=== PATIENT | female | born 1940 | race African-American/Black ===

== ENCOUNTER 2016-09-14 20:07 | Inpatient (IN) ==
[2016-09-14] MEDS ORDERED: MORPHINE IV ONE (21:56)
[2016-09-14] MEDS ORDERED: ZOFRAN IV ONE (21:57)
[2016-09-14] MEDS ORDERED: DUONEB (A & A) INH ONE (22:13)
[2016-09-14 22:15] LABS: ALBUMIN 3.5 g/dL (3.5-5.0); CALCIUM 8.2 mg/dL (8.8-10.2); POTASSIUM 3.8 mmol/L (3.5-5.1); TOTAL BILIRUBIN 0.11 mg/dL (0.20-1.00); TOTAL PROTEIN 5.8 g/dL (6.3-8.3)
[2016-09-14 22:21] LABS: URINE CULTURE NEEDED? NO; URINE MICRO REVIEW NEEDED? NO; URINE SOURCE CLEAN CATCH
[2016-09-14 22:26] LABS: BILIRUBIN URINE NEGATIVE (NEGATIVE); BLOOD URINE NEGATIVE (NEGATIVE); COLOR YELLOW; GLUCOSE URINE NEGATIVE (NEGATIVE); LEUKOCYTES URINE NEGATIVE (NEGATIVE); NITRITE URINE NEGATIVE (NEGATIVE); PROTEIN URINE NEGATIVE (NEGATIVE); SP GRAVITY URINE 1.009; TURBIDITY URINE CLEAR (CLEAR); UR EPITHELIAL CELLS <10 /HPF (<10); URINE BACTERIA NEGATIVE /HPF; URINE RBC <10 /HPF (<10); URINE WBC <10 /HPF (<10); UROBILINOGEN URINE NORMAL (NORMAL)
--- NOTE | 2016-09-14 22:54 | PROVIDER DOCUMENTATION ---
HPI-General Adult - General Chief Complaint: Weakness Stated Complaint: "DIZZY, HARD TO BREATH, HEART POUNDING" Time Seen by Provider: 09/14/16 21:50 Source: patient, family Allergies/Adverse Reactions: Patient Allergies Allergy/AdvReac Type Severity Reaction Status Date / Time codeine [Codeine] Allergy Mild ITCHING Verified 04/12/16 23:45 Penicillins Allergy Mild ITCHING Verified 04/12/16 23:45 Home Medications: Home Medication List Medication Instructions Recorded Confirmed Last Taken Type Allopurinol [Zyloprim] 200 mg PO DAILY 03/20/12 09/14/16 09/14/16 10:00 History Celecoxib [Celebrex] 200 mg PO DAILY 03/20/12 09/14/16 09/14/16 10:00 History Fluticasone/Salmet 250/50 INH 2 puff INH RTBID 03/20/12 09/14/16 09/14/16 10:00 History [Advair 250/50 Diskus] Potassium Chloride 20 meq PO BID 03/20/12 09/14/16 09/14/16 10:00 History Prednisone 5 mg PO DAILY #30 04/22/12 09/14/16 09/14/16 10:00 Rx Albuterol Sulfate Inhaler 2 puff INH Q6H PRN PRN 05/27/12 09/14/16 09/14/16 12: 00 History [Ventolin Hfa] Albuterol [Albuterol Neb] 2.5 mg INH Q4H PRN PRN 05/27/12 09/14/16 09/14/16 09: 30 History Furosemide 80 mg PO BID 02/02/14 09/14/16 09/14/16 10:00 History Warfarin [Coumadin] 3 mg PO QHS 02/02/14 09/14/16 09/13/16 20:00 History Bumetanide [Bumex] 1 mg PO DAILY 04/12/16 09/14/16 09/14/16 10:00 History Hydralazine [Apresoline] 100 mg PO BID 09/14/16 09/14/16 09/14/16 10:00 History Metoprolol Succinate E.r. [Toprol 25 mg PO DAILY 09/14/16 09/14/16 09/14/16 10: 00 History Xl] - History of Present Illness -Gen Adult Nature of Presenting Problems: 76 yof with c/o generalized weakness and some mild SOB. The symptoms has continued to get worse that past few days. Some mild edema to BLE. Pt also c/o left chest pain under her breast. Location of Pain/Injury: reports: none Pain Radiation: reports: no radiation Quality of Pain: reports: dull Severity: reports: mild Onset/Duration: reports: abrupt Timing: reports: still present, getting worse Context/Activities at Onset: reports: rest Modifying Factors: improves with: nothing Associated Symptoms: reports: dizziness, weakness Similar Symptoms Previously?: No Recently seen or treated by another doctor?: No Review of Systems - Adult - REVIEW OF SYSTEMS - ADULT Constitutional: reports: see HPI Eyes: reports: no symptoms reported Ears, Nose, Mouth & Throat: reports: no symptoms reported Cardiovascular: reports: see HPI, chest pain Respiratory: reports: see HPI, shortness of breath Gastrointestinal: reports: no symptoms reported Genitourinary: reports: no symptoms reported Musculoskeletal: reports: no symptoms reported Integumentary: reports: no symptoms reported Neurological: reports: see HPI, dizziness/vertigo All Other Systems: Reviewed and Negative Past History - Adult - PAST MEDICAL HISTORY-ADULT Review of Records: reports: Old Records Reviewed, Nursing Assessment Review, Medications Reviewed, Social history reviewed & non-contributory. Major Childhood Illnesses: reports: denies history Cardiovascular: reports: CHF, HTN, hyperlipidemia Respiratory: reports: asthma, other (PE) Gastrointestinal: reports: GERD Obstetrical/Gynecological: reports: denies history Genitourinary: reports: kidney stones, other (chronic renal failure) Musculoskeletal: reports: denies history Neurological: reports: denies history Endocrine/Immune: reports: anemia Other Conditions: reports: MRSA - PRIOR SURGERIES/PROCEDURES Surgical/Procedure History: reports: appendectomy - IMMUNIZATION STATUS Childhood Immunizations: See Nurse Assessment Flu Vaccine: See Nurse Assessment Physical Exam-General - PHYSICAL EXAM-ADULT Initial Vital Signs Reviewed: Yes - CONSTITUTIONAL General Appearance: appears well, alert, no apparent distress - EYES Eyes: PERRL/EOMI, pink conjunctivae - HEAD, EARS, NOSE, MOUTH & THROAT HENMT: normocephalic/atraumatic, moist mucous membranes, normal ENT inspection, TMs normal, pharynx normal - NECK Neck: non-tender, full range of motion, supple, normal inspection - RESPIRATORY Respiratory: chest non-tender, lungs clear, normal breath sounds, no pleuratic chest pain, no respiratory distress, no accessory muscle use - CARDIOVASCULAR Cardiovascular: normal peripheral pulses, regular rate, rhythm - GASTROINTESTINAL (ABDOMEN) Abdominal Exam: normal bowel sounds, non tender, soft, no organomegaly, no pulsatile mass - LYMPHATIC Lymphatic: no adenopathy - MUSCULOSKELETAL Back Exam: normal inspection, no CVA tenderness, no vertebral tenderness Extremity: normal range of motion, non-tender, normal gait, no pedal edema, no calf tenderness, normal capillary refill, pelvis stable, pedal edema - SKIN Integumentary: normal color, normal turgor, warm/dry - NEUROLOGIC Neurologic: grossly normal - PSYCHIATRIC Psych/Mental Status: oriented x 3 Progress - PLAN OF CARE/RESULTS Progress/Plan/Lab Results: Vital Signs - 8 hr 09/14/16 20:09 09/14/16 20:50 09/14/16 20:52 Temperature 98.4 F Pulse Rate 91 H 83 81 Respiratory Rate 20 20 Blood Pressure 142/64 147/81 144/82 O2 Sat by Pulse Oximetry 100 100 100 09/14/16 22:17 09/14/16 22:22 Temperature Pulse Rate 91 H 80 Respiratory Rate 31 H 16 Blood Pressure 147/68 O2 Sat by Pulse Oximetry 100 Laboratory Results - last 24 hr 09/14/16 09/14/16 09/14/16 21:33 21:33 21:33 Sodium 144 Potassium 3.8 Chloride 105 Carbon Dioxide 21 L Anion Gap 18 BUN 111 H Creatinine 3.6 H Estimated GFR/1.73 m2 15 BUN/Creatinine Ratio 31 Glucose 136 H Calculated Osmolality 324 Calcium 8.2 L Total Bilirubin 0.11 L AST 12 ALT 9 L Alkaline Phosphatase 41 Creatine Kinase 122 Troponin T 0.036 Cic-G-Cxasnuwtkwz Pept 9475 H Total Protein 5.8 L Albumin 3.5 Globulin 2.3 Albumin/Globulin Ratio 1.5 Urine Source Urine Color Urine Turbidity Urine pH Ur Specific [place] Urine Protein Ur Glucose (Stick) Ur Ketones (Stick) Urine Blood Urine Nitrite Urine Bilirubin Urobilinogen Dipstick Urine Leukocytes Urine WBC (Auto) Urine RBC (Auto) U Epithel Cells (Auto) Urine Bacteria (Auto) 09/14/16 22:12 Sodium Potassium Chloride Carbon Dioxide Anion Gap BUN Creatinine Estimated GFR/1.73 m2 BUN/Creatinine Ratio Glucose Calculated Osmolality Calcium Total Bilirubin AST ALT Alkaline Phosphatase Creatine Kinase Troponin T [id number] Pept Total Protein Albumin Globulin Albumin/Globulin Ratio Urine Source CLEAN CATCH Urine Color YELLOW Urine Turbidity CLEAR Urine pH 5.0 Ur Specific [place] 1.009 Urine Protein NEGATIVE Ur Glucose (Stick) NEGATIVE Ur Ketones (Stick) NEGATIVE Urine Blood NEGATIVE Urine Nitrite NEGATIVE Urine Bilirubin NEGATIVE Urobilinogen Dipstick NORMAL Urine Leukocytes NEGATIVE Urine WBC (Auto) <10 Urine RBC (Auto) <10 U Epithel Cells (Auto) <10 Urine Bacteria (Auto) NEGATIVE Orders Category Date Time Status CHEST-PORTABLE [RAD] Stat Exams 09/14/16 22:13 Taken CBC WITH ELECTRONIC DIFF [HEME] Stat Lab 09/14/16 21:33 Results CK PROFILE [SP CHEM] Stat Lab 09/14/16 21:33 Completed CMP [COMPREHENSIVE METABOLIC PANEL] [CHEM] Stat Lab 09/14/16 21:33 Completed PRO B-NATRIURETIC PEPTIDE Stat Lab 09/14/16 21:33 Completed TROPONIN T Stat Lab 09/14/16 21:33 Completed URINALYSIS W/POSS RFLX CULT [URINALYSIS] Stat Lab 09/14/16 22:12 Completed Albuterol 2.5MG/Ipratrop 0.5MG [Duoneb (A & A)] Med 09/14/16 22:13 Discontinued 3 ml INH NOW ONE Morphine Med 09/14/16 21:56 Discontinued 4 mg IV NOW ONE Ondansetron [Zofran] Med 09/14/16 21:57 Discontinued 4 mg IV NOW ONE Aerosol Treatments Routine Oth 09/14/16 22:13 Completed Aerosol Treatments Stat Oth 09/14/16 22:13 Completed EKG [EKG] Stat Ther 09/14/16 20:18 Ordered Result Diagrams: 09/14/16 21:33 09/14/16 21:33 - XRAY 1 XRAY Study: Chest Impression: See EMR Report (Very mild pulmonary congestion per Dr. Bowling.) - CONSULTS/PCP/HOSPITALIST Notification #1 *Consult/PCP/Hospitalist*: Lane Consult Disposition: Admit Departure - Departure Time of Disposition Decision: 23:13 DIAGNOSIS: Anemia Qualifiers: Anemia type: unspecified type Qualified Code(s): D64.9 - Anemia, unspecified CHF (congestive heart failure) Qualifiers: Congestive heart failure type: unspecified congestive heart failure type Congestive heart failure chronicity: chronic Qualified Code(s): I50.9 - Heart failure, unspecified Disposition: ADMITTED INPATIENT 09 Certified Medical Emergency: Emergent Condition: Stable Referrals and Follow-Ups: Liliana Munoz MD [Primary Care Provider] - - Critical Care Note This patient required my direct & personal management of CC.: No Attestation - Physician/ HAKAN Attestation Patient care was provided by Advanced Practice Provider:: Yes Advanced Practice Provider:: Ac Friedman Advanced Practice Provider documentation review:: The Mid-level provider documentation, treatment plan and medical decision making was reviewed by the physician who agrees with all treatment and medical decision making by the MLP.
[2016-09-14 23:01] LABS: BASO% 0.3 % (0.0-0.8); EOS# 0.07 X1000 (0.0-0.7); EOS% 0.6 % (0.0-10.0); HEMATOCRIT 18.9 % (37.0-47.0); HEMOGLOBIN 5.7 g/dL (12.0-16.0); IMM GRAN# 0.08 X1000 (0.0-0.04); IMM GRAN% 0.7 % (0.0-0.5); LYMPH# 0.86 X1000 (1.2-3.4); LYMPH% 7.4 % (20.5-51.1); MANUAL DIFF NEEDED? NO; MCH 31.3 PG (27-31); MCHC 30.2 g/dL (33-37); MCV 103.8 FL (81-99); MONO# 0.83 X1000 (0.11-0.59); MONO% 7.1 % (1.7-9.3); MPV 10.2 FL (7.4-10.4); NEUT% 83.9 % (42.2-75.2); PLT 271 X1000 (130-400); RBC 1.82 XMIL (4.2-5.4)
[2016-09-15 00:58] LABS: IRON SATURATION 7 %; TIBC 279 ug/dL; TOTAL IRON 20 ug/dL (49-151); UNBOUND IRON 259 ug/dL (112-346)
[2016-09-15] MEDS ORDERED: ZOFRAN IV PRN (00:59)
[2016-09-15] MEDS ORDERED: TYLENOL PO PRN (00:59)
[2016-09-15 01:17] LABS: FERRITIN 27 ng/mL (13-150)
[2016-09-15 02:15] LABS: HEMOGLOBIN A1C 5.1 % (4.8-6.0)
[2016-09-15] MEDS ORDERED: NS 250 ML IV SCH (02:25)
[2016-09-15] MEDS ORDERED: NS 500 ML ONE (02:39)
[2016-09-15] MEDS ORDERED: NS 500 ML IV SCH (03:02)
[2016-09-15] MEDS: NS 500 ML IV SCH ×2 (03:14→06:20)
[2016-09-15] MEDS: ALBUTEROL NEB INH PRN ×5 (03:25→23:30)
[2016-09-15] MEDS: PROTONIX IV SCH ×2 (03:27→12:48)
--- NOTE | 2016-09-15 05:59 | HISTORY AND PHYSICAL ---
PRIMARY CARE PHYSICIAN: Dr. Munoz. CHIEF COMPLAINT: Shortness of breath on exertion. HISTORY OF PRESENT ILLNESS: This is a 76-year-old female with past medical history of diabetes, hypertension, who was brought to the emergency department because she was feeling weak and tired. She reports that she had this sensation for the last week and she went to see her primary care doctor and that was 3 days ago. Apparently, she was also complaining of shortness of breath. She had a pulmonary embolism with DVT status post inferior vena cava filter. She was started on Coumadin and she reported that she was on Coumadin and she got GI bleeding but the medication was restarted later on. Workup in the ER showed very low hemoglobin of 5.7 so patient is going to be admitted for further evaluation and treatment. She denies any vomiting blood or blood in the urine or black stools. PAST MEDICAL HISTORY: 1. Hypertension. 2. Diabetes type 2. 3. Carcinoid syndrome. Dr. Lozoya is following this patient. 4. Gout. 5. Metabolic syndrome. 6. Pickwickian syndrome. 7. Peptic ulcer disease. 8. Chronic kidney disease. PAST SURGICAL HISTORY: 1. Appendectomy. 2. Colonoscopy. 3. Ventral hernia repair. 4. Hysterectomy. 5. Left knee arthroscopy. 6. Left sigmoid colectomy. 7. Port-A-Cath placed in the right side status post IVC filter. ALLERGIES: Penicillin and codeine. SOCIAL HISTORY: Patient lives with daughter. No alcohol, cigarette or drugs reported. REVIEW OF SYSTEMS: Eleven systems were reviewed and all symptoms are related to H P. PHYSICAL EXAMINATION: VITALS: Temperature 98.4 degrees, heart rate 85, respiratory 22, blood pressure 161/76, O2 saturation 100% on room air. GENERAL: This is a 76-year-old female lying in bed in no acute distress. HEENT: Normocephalic, atraumatic. Anicteric sclerae and pale conjunctivae. Mucous membranes moist. NECK: Supple. No JVD noted. No carotid bruits. No lymphadenopathy. No thyromegaly. CARDIOVASCULAR: S1, S2 heard. No murmurs, gallops, or rubs. Regular rate and rhythm. RESPIRATORY: Clear bilaterally to auscultation. No work of breathing. No wheezing. ABDOMEN: Soft, nontender to palpation. Bowel sounds present. No organomegaly. EXTREMITIES: Mild edema 3+ in both lower extremities. Peripheral pulses present in both legs. NEUROLOGICAL: Patient alert and oriented x3. Able to move 4 extremities. Cranial nerves 2 through 12 grossly normal. LABORATORY DATA: Hemoglobin 5.7, hematocrit 18.9, platelets 271,000 with a creatinine 3.6, BUN 111. ASSESSMENT AND PLAN: 1. Severe anemia. 2. Hypertension. 3. Diabetes mellitus. 4. Congestive heart failure. 5. Chronic kidney disease 6. History of carcinoid Patient is admitted to the hospital because of the severe anemia. We are going to order anemia profile but definitely this patient will need 2 units of blood. We are going to check CBC tomorrow. Also, because of suspicion for GI bleeding we are going to consult GI and also we ordered a CT of the abdomen and pelvis without contrast because of renal dysfunction. For chronic kidney disease we are going to continue with the same management with IV fluids and we will consider consult Dr. Elliott while this patient is here in the hospital. We will consult Dr. Lozoya for continuity of care regarding carcinoid and anemia. For hypertension, we will continue with home medications. For diabetes, we are going to check hemoglobin A1c and check Accu-Cheks q.6 hours. Tomorrow, Dr. Nik Munoz's group will take over this patient. cc: William Oliveira MD [facility]
--- NOTE | 2016-09-15 07:14 | EKG Report ---
Test Performed on : 09/14/2016 9:17:27 PM Test Reason : WEAKNESS Blood Pressure : / mmHG Vent. Rate : 093 BPM Atrial Rate : 093 BPM P-R Int : 232 ms QRS Dur : 162 ms QT Int : 412 ms P-R-T Axes : 066 -59 014 degrees QTc Int : 512 ms Sinus rhythm. with 1st degree AV block. with occasional and consecutive premature ventricular comple xes. Left axis deviation Right bundle branch block Septal infarct (cited on or before 14-SEP-2016) Abnormal ECG When compared with ECG of 14-SEP-2016 21:14, (Unconfirmed) premature ventricular complexes. are now present Questionable change in initial forces of Septal leads Unconfirmed Result
[2016-09-15] MEDS: APRESOLINE PO SCH ×2 (08:15→21:24)
[2016-09-15] MEDS: PREDNISONE PO SCH (08:15)
[2016-09-15] MEDS: KLOR-CON PO SCH ×2 (08:15→21:25)
[2016-09-15] MEDS ORDERED: TOPROL XL PO SCH (09:00)
[2016-09-15] MEDS ORDERED: ZYLOPRIM PO SCH (09:00)
[2016-09-15] MEDS ORDERED: BUMEX PO SCH (09:00)
[2016-09-15] MEDS ORDERED: LASIX PO SCH (09:00)
[2016-09-15] MEDS: ADVAIR 250/50 DISKUS INH SCH ×2 (09:10→19:02)
[2016-09-15] MEDS ORDERED: VENTOLIN HFA INH PRN (11:44)
[2016-09-15 11:57] LABS: BASO% 0.2 % (0.0-0.8); EOS% 0.8 % (0.0-10.0); HEMATOCRIT 26.2 % (37.0-47.0); HEMOGLOBIN 8.4 g/dL (12.0-16.0); IMM GRAN# 0.05 X1000 (0.0-0.04); IMM GRAN% 0.4 % (0.0-0.5); LYMPH# 0.53 X1000 (1.2-3.4); LYMPH% 4.3 % (20.5-51.1); MANUAL DIFF NEEDED? YES; MCH 30.9 PG (27-31); MCHC 32.1 g/dL (33-37); MCV 96.3 FL (81-99); MONO# 0.63 X1000 (0.11-0.59); MONO% 5.1 % (1.7-9.3); NEUT% 89.2 % (42.2-75.2); PLT 246 X1000 (130-400); RBC 2.72 XMIL (4.2-5.4)
--- NOTE | 2016-09-15 11:59 | Diag Imaging Result Document ---
PROCEDURE NAME: ABDOMEN/PELVIS W/O CONTRAST - 09/15/2016 CT ABDOMEN AND PELVIS WITHOUT CONTRAST: COMPARISON: 10/27/2013. FINDINGS: There is a 1.1 cm noncalcified nodule at the left lung base that is stable. Given this long-term stability, this very likely represents a noncalcified granuloma based on [employer] Criteria. There is subsegmental atelectasis and/or scarring at the lung bases. There is cardiomegaly. The gallbladder is distended. There is no pericholecystic inflammatory change appreciated. There are a couple of small cyst density foci involving both kidneys. They are somewhat larger than the previous study. No renal stones are appreciated. There is no hydronephrosis. There has been interval placement of an infrarenal IVC filter. The struts of both filter extend beyond the wall of the IVC. There is extensive diverticulosis coli, but there is no evidence of diverticulitis. There are a couple of supraumbilical ventral wall hernias that can also be seen on the previous study. One contains only fat. The other contains a loop of small bowel. This was also seen on the previous study. There is no evidence of bowel strangulation. The bowel is not distended. There has been a previous hysterectomy. There is a metallic staple line associated with the distal colon. The remainder of the solid viscera of the abdomen and pelvis and the remainder of the GI tract is essentially unremarkable. No focal inflammatory changes, free abdominal gas, or free fluid is appreciated. IMPRESSION: 1. Interval placement of IVC filter as described with struts that extend beyond the IVC wall. 2. A couple of supraumbilical ventral wall hernias with one containing a loop of small bowel. However, there is no evidence of obstruction. 3. Other incidental/nonacute findings detailed above but no definite acute pathology.
--- NOTE | 2016-09-15 12:01 | Diag Imaging Result Document ---
PROCEDURE NAME: CHEST-PORTABLE - 09/14/2016 SINGLE FRONTAL RADIOGRAPH OF THE CHEST: COMPARISON: 04/13/2016. FINDINGS: Right chest port is in stable position. The lungs appear to be grossly clear. There is mild opacification at the left lung base but this appears to be due to overlying soft tissue attenuation. Cardiac silhouette is prominent but stable. Central vasculature is unremarkable. IMPRESSION: Somewhat prominent heart that is stable. No definite acute pathology.
--- NOTE | 2016-09-15 12:35 | PROGRESS NOTE ---
DATE: 09/15/2016 76-year-old, patient admitted with shortness of breath, decreased exercise tolerance. The patient was getting tired very easily. Came to the emergency room. Found to be severely anemic. The patient was admitted for further care. Admission history and physical noted. The patient does have a very complex medical history. The patient is under care of Hematology oncologist for her carcinoid. The patient had history of pulmonary embolism with DVT. Patient had inferior vena cava filter. Patient had problem with GI bleed on Coumadin which was stopped and restarted as per HPI. The patient denied any fresh bleeding per rectum. The patient complaining of muscle cramp in the legs. At times, nausea, vague pain in the left upper quadrant. No typical chest pain. She did have dyspnea on exertion. No runny nose, stuffy nose. No heat or cold intolerance. The rest from the admission history and physical. PAST MEDICAL HISTORY: Longstanding hypertension, diabetes, carcinoid syndrome, gout, Pickwickian syndrome, peptic ulcer disease and chronic kidney disease. PHYSICAL EXAMINATION: General: Elderly patient in no acute distress. Vital Signs: Noted. Blood pressure 162/69, pulse 85, respirations 20, temperature 98.1 degrees. Skin: No rash or petechiae. HEENT: Head atraumatic, normocephalic. [place] conjunctivae. [place] sclerae. Extraocular muscle movement normal. Fundus cannot be penetrated. Good oral hygiene. Ears and nose benign. Neck: Supple. No JVD. Lungs: Bibasilar crepitations. Heart: S1 and S2 heard. Abdomen: Soft, globular. Bowel sounds present. Mild epigastric tenderness. No guarding or rigidity. Extremities: No cyanosis, clubbing. No acute DVT. TIMING MACHINE OPERATOR: Alert, awake. Able to move all 4 limbs. Crepitation both the knee joints. LAB DATA: On admission, hemoglobin 5.7, WBC count 11.67, hematocrit 18.9, platelet count 271,000. BUN 111, creatinine 3.6. The patient's ferritin was 27. Serum iron was 20, vitamin B 12, 847. Folate 19. TSH 0.62. Urinalysis results reviewed. Patient had CT scan of abdomen and pelvis done and chest x-ray. Those results are pending. CONSIDERATION: 1. Symptomatic anemia status post blood transfusion. 2. Acute kidney injury. 3. Diabetes mellitus. 4. Hypertension. 5. Gout. 6. Carcinoid. PLAN: We will continue gentle hydration. The patient had a GI and Hematology consult requested. We are going to monitor her hemoglobin and hematocrit. I am going to continue gentle hydration, close observation, pain management. Overall plan discussed with the patient and she is in agreement. cc: MD Frankie Luciano MD
[2016-09-15 12:41] LABS: CALCIUM 7.9 mg/dL (8.8-10.2); POTASSIUM 4.2 mmol/L (3.5-5.1)
[2016-09-15] MEDS: NS 1,000 ML IV SCH (12:48)
[2016-09-15] MEDS: DILAUDID IV PRN ×2 (12:48→21:37)
[2016-09-15] MEDS: SODIUM CHLORIDE 0.9% INJ SCH (12:48)
[2016-09-15] MEDS: CATAPRES-TTS-3 TD SCH (12:53)
[2016-09-15 12:58] LABS: BANDS 2 % (0-1); LYMPHS 4 % (21-51); MONO 6 % (1-9); NRBC 1 % (0-0)
--- NOTE | 2016-09-15 17:39 | CONSULTATION ---
DATE OF CONSULTATION: 09/15/2016 REASON FOR CONSULTATION: Chronic kidney disease. HISTORY OF PRESENT ILLNESS: Ms Bhatt is a 76-year-old black female with obesity, diabetes, hypertension. She has carcinoid syndrome and is followed by Dr. Lozoya. She also has obstructive sleep apnea and known chronic kidney disease. She came to the emergency room because she had progressive weakness over period of weeks. She had seen Dr. Munoz and Dr. Lozoya but her symptoms were progressive. Dr. Lozoya had ordered dose of Sandostatin but her hemoglobin was markedly low so she came to the emergency room for transfusion and admission to the hospital. In this context, her creatinine was elevated above her historical baseline. Specifically, her creatinine was 3.6 on presentation. Her last creatinine in this facility was 2.9 in April of this year. It has ranged between 2.4 and 2.9 over the last 2 years. She feels somewhat better having received a transfusion. She has received 2 units of packed red blood cells and continues to receive normal saline at 85 mL an hour. No chest pain, palpitation, nausea, vomiting, etc. PAST MEDICAL HISTORY: As above. She also has a history of DVT. HOME MEDICATIONS: Include Advair, Celebrex, allopurinol, potassium chloride, prednisone, albuterol, warfarin, furosemide, bumetanide, metoprolol, hydralazine, clonidine. ALLERGIES: Penicillin and codeine. SOCIAL HISTORY: She lives with her daughter. No alcohol or tobacco. FAMILY HISTORY: Otherwise noncontributory. REVIEW OF SYSTEMS: Otherwise noncontributory. PHYSICAL EXAMINATION: Vital Signs: Blood pressure 140/53, heart rate 95, respiration 18, afebrile. General: She is in no acute distress. Skin: Warm and dry. HEENT: Conjunctivae are pink. Pupils are equal. Oropharynx is moist. Dentition normal. Neck: Supple. Trachea is midline. Neck veins are not distended. Heart: Regular without gallops or murmurs. Lungs: Have equal breath sounds. No crackles or wheezes. Abdomen: Soft and obese and nontender. Bowel sounds are present. No organomegaly. Extremities: Have no edema, clubbing, or cyanosis. Neurologic Exam: Grossly nonfocal. LABORATORY DATA: Sodium 144, potassium 4.2, chloride 108, bicarbonate 20, BUN 107, creatinine 3.6, hemoglobin 8.4. IMPRESSION: Chronic kidney disease. She had renal imaging with CT of the abdomen this morning with no acute findings related to her kidneys. Her creatinine is above baseline but only modestly. This may be related to her profound anemia and may improve over the next several days. I have reviewed her medications and no changes are required. She will continue her IV fluids as ordered. Electrolytes and acid-base are in target. cc: MD Frankie Zepeda MD
[2016-09-15 19:12] LABS: INR 2.98; PROTIME 33.6 Seconds (9.2-11.7)
[2016-09-15] MEDS: TOPROL XL PO SCH (21:24)
[2016-09-15] MEDS: CARAFATE LIQUID PO SCH (21:24)
[2016-09-16] MEDS: NS 1,000 ML IV SCH ×2 (01:02→13:47)
[2016-09-16] MEDS: CARAFATE LIQUID PO SCH ×4 (01:03→20:22)
[2016-09-16] MEDS: PROTONIX IV SCH ×2 (02:59→13:47)
[2016-09-16 05:24] LABS: MANUAL DIFF NEEDED? NO
[2016-09-16] MEDS ORDERED: DULCOLAX PR ONE (05:50)
[2016-09-16 05:55] LABS: ALBUMIN 3.1 g/dL (3.5-5.0); CALCIUM 7.6 mg/dL (8.8-10.2); TOTAL BILIRUBIN 0.17 mg/dL (0.20-1.00)
[2016-09-16 06:02] LABS: INR 3.06; PROTIME 34.5 Seconds (9.2-11.7)
[2016-09-16 06:03] LABS: BASO% 0.2 % (0.0-0.8); EOS# 0.16 X1000 (0.0-0.7); EOS% 1.4 % (0.0-10.0); HEMATOCRIT 24.2 % (37.0-47.0); HEMOGLOBIN 7.6 g/dL (12.0-16.0); IMM GRAN# 0.04 X1000 (0.0-0.04); IMM GRAN% 0.4 % (0.0-0.5); LYMPH# 0.72 X1000 (1.2-3.4); LYMPH% 6.5 % (20.5-51.1); MCH 30.3 PG (27-31); MCHC 31.4 g/dL (33-37); MCV 96.4 FL (81-99); MONO# 0.99 X1000 (0.11-0.59); MONO% 8.9 % (1.7-9.3); MPV 9.9 FL (7.4-10.4); NEUT% 82.6 % (42.2-75.2); PLT 243 X1000 (130-400); RBC 2.51 XMIL (4.2-5.4)
[2016-09-16] MEDS ORDERED: LASIX IV ONE (06:25)
--- NOTE | 2016-09-16 06:50 | PROGRESS NOTE ---
DATE: 09/16/2016 SUBJECTIVE: Ms. Bhatt is doing fair. The patient had vague left upper quadrant and chest pain. Complaining of leg cramps. No typical chest pain. No high-grade fever or chills. Denied any nausea or vomiting. Overall, patient is feeling better. She does get short of breath with exertion. Patient admitted with symptomatic anemia. OBJECTIVE: Vital Signs: Noted. Neck: Supple. No JVD. Lungs: Bibasilar crepitations. Heart: S1 and S2 heard. Extremities: No cyanosis, clubbing. No acute DVT. TOY CONSULTANT: Alert, awake. Able to move all 4 limbs. CONSIDERATION: 1. Symptomatic anemia, status post blood transfusion. Posttransfusion hemoglobin 7.6. No apparent external bleeding. The patient's PT/INR 3.06. Her anticoagulation is on hold. Green Lumber Grader following patient with us. 2. Her other problems include acute on chronic kidney disease. The patient was on very high dose of diuretics. 3. Carcinoid, being followed up by passenger barge master/oncologist. 4. History of deep venous thrombosis and pulmonary embolism. Her prothrombin time is still high. No apparent external bleeding. 5. Hypertension. 6. History of gout. Considering her renal function, I decreased her allopurinol. PLAN: Plan is to continue current treatment. I am going to give her small dose of Lasix today. Handmade Tile Artist, manager dish, and passenger barge master following patient with us. I am going to recheck blood work this afternoon. Continue rest of the treatment and close observation. cc: MD Frankie Luciano MD
[2016-09-16] MEDS: PREDNISONE PO SCH (08:11)
[2016-09-16] MEDS: APRESOLINE PO SCH ×2 (08:11→20:23)
[2016-09-16] MEDS: ZYLOPRIM PO SCH (08:11)
[2016-09-16] MEDS: KLOR-CON PO SCH ×2 (08:12→20:23)
[2016-09-16 09:10] LABS: CK INDEX 2.3 (0.0-2.5); CK-MB 4.41 ng/mL (0.0-5.0)
[2016-09-16] MEDS: ADVAIR 250/50 DISKUS INH SCH ×2 (09:25→19:03)
[2016-09-16] MEDS: ALBUTEROL NEB INH PRN ×2 (09:25→19:03)
[2016-09-16 11:51] LABS: RETIC% 7.19 % (0.8-2.1); RETIC-HE 26.2 PG (28.2-36.6)
--- NOTE | 2016-09-16 12:33 | CONSULTATION ---
DATE OF CONSULTATION: 09/16/2016 REASON FOR CONSULTATION: Cardiology was consulted for a 25 beat run of broad complex tachycardia and subsequently another episode of 31 beat run of broad complex tachycardia. Patient was asymptomatic from a cardiac standpoint. The patient is admitted with severe anemia, having undergone blood transfusion. HISTORY OF PRESENT ILLNESS: This is a 76-year-old Afro-[place] lady with a past medical history of hypertension and diabetes, came to the emergency room, was feeling weak. She had gone to see a primary care physician about 3 days back. She is on Coumadin for pulmonary embolism, DVT, and IVC filter placement in the past. From a cardiac standpoint, no known cardiac history. She has been diagnosed to have carcinoid syndrome. Underwent surgery and chemotherapy in 2003. Subsequently she has been stable from that account and followed by Dr. Lozoya. From a cardiac standpoint, has not had any syncope or chest discomfort. She denies having any nausea or vomiting. Has not noticed any black stools or blood in her stools. However, some greenish dark stools she had noted a couple of days back. There are no palpitations. REVIEW OF SYSTEM: A 14-point review of systems was done. GI System: As above. Central nervous system: No focal weakness to suggest a CVA or TIA. Genitourinary: There is no dysuria or hematuria. Respiratory System: There is no history of cough, expectoration, hemoptysis. There is no history of fevers or chills. PAST MEDICAL HISTORY: 1. Hypertension. 2. Diabetes. 3. Carcinoid syndrome status post surgery and chemotherapy. No history of cardiac involvement per patient. 4. Gout. 5. Metabolic syndrome. 6. Gastroesophageal reflux, peptic ulcer disease. 7. Chronic renal insufficiency. PAST SURGICAL HISTORY: 1. Left sigmoid colectomy. 2. Left knee arthroscopy. 3. Hysterectomy. 4. Ventral hernia surgery. 5. Colonoscopy. 6. Appendectomy. ALLERGIES: Patient is allergic to penicillin and codeine. SOCIAL HISTORY: Does not smoke. Does not drink. PHYSICAL EXAMINATION: Vital signs: Blood pressure was 160/70 when she came in. Cardiovascular System: Normal jugular venous pressure. There is no thyromegaly. There is no carotid bruit. First and second heart sounds were heard. There was no S3 gallop. Respiratory System: Clear on bilateral auscultation. There were no crepitations or wheezing. Abdomen: Soft, nontender. There was no guarding or rigidity. Bowel sounds were heard. Extremities: Examination of the extremities reveal pedal edema bilaterally, mild. Central nervous system: Alert and oriented. Moving all 4 extremities. HEENT: Atraumatic, normocephalic. LABORATORY EXAMINATION: Revealed WBC 11.67, hemoglobin 5.7, hematocrit 18.9, platelet count of 271,000. After transfusion 11.16, hemoglobin 7.6, hematocrit 42.2, platelet count of 243,000. Chemistry: Sodium 144, potassium 4.0, magnesium 2.0, BUN 96, creatinine 3.4. Troponin 0.041. CK-MB 4.41 negative. Chest x-ray was unremarkable. HOME MEDICATIONS: Included celecoxib 200 mg p.o. daily, allopurinol 200, potassium supplements 20, prednisone 10, nebulizers, Coumadin 4 mg, Lasix 80 mg p.o. b.i.d., Bumex 1 mg p.o. daily, metoprolol 25, hydralazine 50 mg p.o. t.i.d., clonidine patch. ASSESSMENT AND PLAN: 1. Ms. Chayo Bhatt is a 76-year-old Afro-[place] lady with history of carcinoid in the past status post surgery and chemotherapy, hypertension, diabetes, renal insufficiency, gastroesophageal reflux disease, on Coumadin therapy for pulmonary embolism in the past, is admitted with weakness and has severe anemia. Coumadin has been held status post blood transfusion. From a cardiac standpoint, we will get an echocardiogram to assess cardiac and valvular function. She has had broad complex tachycardia 31 beat and 25 beat without any symptoms. Cardiac enzymes negative. This could be multifactorial. She had significant electrolyte imbalance when she came in and nephrology is following as well. For the present we will follow hospital course. She is on metoprolol. I will recommend continuing her metoprolol. 2. Severe anemia. GI has been consulted. Upper GI endoscopy planned. Recommend proceeding with endoscopy. 3. Acute on chronic renal insufficiency. Nephrology on board. Thank you for the consult. We will follow hospital course. cc: MD Frankie Phoenix MD
--- NOTE | 2016-09-16 13:26 | CONSULTATION ---
DATE OF CONSULTATION: 09/15/2016 ATTENDING PHYSICIAN: Dr. Sherman. PRIMARY: Dr. Munoz. REASON FOR CONSULTATION: Severe anemia. HISTORY OF PRESENT ILLNESS: Ms. Bhatt a 76-year-old female who was admitted on 09/15/2016 with shortness of breath on exertion. She has prior history of PE, DVT status post IVC filter and on chronic Coumadin. She was noted to have a hemoglobin of 5.7. On admission she was given blood transfusion. 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 Lozoya. She gets once a month shot of long-acting somatostatin analog per Dr. Lozoya, her next appointment with Dr. Lozoya was coming Saturday. Patient denies any nausea, vomiting, vomiting blood or blood in the stools or black stools, blood in the urine and she had similar symptoms 3 years ago. At that time she had a EGD, colonoscopy done which showed evidence of gastritis and colon polyps and diverticulosis. PAST MEDICAL HISTORY: 1. Hypertension. 2. Type 2 diabetes. 3. Car[address]oid syndrome Dr. Lozoya getting somatostatin analog once a month. 4. Gout. 5. Metabolic syndrome. 6. Pickwickian syndrome. 7. Peptic ulcer disease. 8. Chronic kidney disease. PAST SURGICAL HISTORY: 1. 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 Colonoscopy. 3. EGD. 4. Ventral hernia repair. 5. Hysterectomy. 6. Two left knee arthroscopy. 7. Left sigmoid colectomy. 8. Port-A-Cath placement in the right status post IVC filter. ALLERGIES: Penicillin, codeine. SOCIAL HISTORY: She lives with her daughter, her daughter is present at bedside and very supportive. No history of smoking, alcohol, tobacco, illicit drugs. REVIEW OF SYSTEMS: Denies any current fevers, rigors or chills, chest pain, shortness of breath, dyspnea, denies any current nausea or vomiting, vomiting blood. Denies any history of coffee- grounds emesis. Denies any history of melena or blood in the stools. She does have history intermittent constipation. Her last bowel movement yesterday, she has not moved her bowels today. She has a history of arthritis, denies any neurological complaints. She complains of shortness of breath on exertion which was attributed to anemia is getting better, after transfusion . MEDICATIONS: In the hospital include IV fluids, normal saline, 20 mg of Tylenol , albuterol inhaler, allopurinol, clonidine, fluticasone/salmeterol, hydralazine, hydromorphone, Dilaudid, metoprolol, IV fluids, Zofran, Protonix IV b.i.d. and potassium chloride 20 mEq b.i.d., prednisone 5 mg daily, sucralfate 1 g 6 hours, albuterol/ipratropium inhalation once. She is currently on clear liquid diet. PHYSICAL EXAM: Vital signs: Temperature 97.3, pulse of 95, respiratory rate 18, blood pressure 140/50, saturating 100% on nasal cannula, body weight of 199 pounds 1 ounce, BMI 36. General: Is moderately built, nourished, mildly obese lying in bed in no acute distress. Daughter at bedside. HEENT: Pale conjunctivae. No icterus. Pupils equal, react to light. Neck: Was supple. Chest: decreased breath sounds at the bases Cardiac: Regular rhythm, no murmur. Abdomen: Obese, soft, nontender, nondistended. Bowel sounds and no guarding. No rebound. Extremities: No cyanosis, clubbing. Neuro: She is alert, awake and oriented x3. LABS: Hemoglobin and hematocrit is 8.4, 26.2, white count 12.3, platelet count of 246,000, MCV of 96.3, admission hemoglobin and hematocrit was 5.7, 18.9, PTT of 37.1. Sodium 142, potassium 4.2, chloride 129, BUN of 107, creatinine 3.6, glucose 133, calcium 7.9, iron level of 21, calcium is 8.2, percent saturation iron is 7%, TIBC 279, ferritin 27, total bilirubin is 0.11, AST 12, ALT 9, alkaline phosphatase is 41, total protein is 5, albumin of 3.5, B12 847, folate of 19, urinalysis is negative. CT scan done on 09/15/2016 showed interval placement IVC filter with struts that extends beyond IVC. #2. A couple of supraumbilical ventral wall hernias with 1 containing a loop of small bowel however there is no discharge. #3. 1 cm noncalcified nodule at the left lung base that is stable. 4. Subsegmental atelectasis or scarring in lung bases. 5. Cardiomegaly. 5. Gallbladder is distended, no pericholecystic inflammatory change noted. Small cysts noted in both kidneys, no hydronephrosis, extensive diverticulosis coli, no evidence of diverticulitis , couple of supraumbilical ventral hernia only 1 contains only fat, other 1 continuous loop of small bowel. No bowel strangulation. Previous hysterectomy, metallic staple line associated with the distal colon had a sigmoid colon resection history. No focal inflammatory change, free abdominal gas or free fluid noted. MEDICATIONS AT HOME: 1. Advair Diskus . 2. Celecoxib. 3. Allopurinol. 4. Potassium chloride. 5. Prednisone. 6. Ventolin HFA. 7. Warfarin. 8. Furosemide. 9. Hydralazine. 10. Clonidine. 11. Metoprolol. These are medicines from historic records, I do not have a list of medicines when she was admitted. IMPRESSION/PLAN: 1. Anemia with no evidence of any overt gastrointestinal bleeding. 2. Carcinoid syndrome, history appendiceal carcinoid which are ruptured and she is currently receiving somatostatin analog once a month per Dr. Lozoya, we will try to seek his help in order to evaluate for the extent of her carcinoid syndrome disease and if there is any kind of liver metastasis. 3. Diverticulosis of the colon. 4. Distended gallbladder was noted on Imaging. 5. Renal insufficiency. 6. Obesity. RECOMMENDATIONS: 1. Will continue patient on Protonix IV b.i.d. Will give patient Carafate 1 g 6 hours. Will keep a close eye on the patient's hemoglobin and hematocrit type and cross transfuse keep hematocrit more than 27%. 2. Will schedule patient for EGD over the weekend or on Saturday depending on her clinical status. The patient's celecoxib and NSAIDs will be held. 3. Her Coumadin has been held. We will check her INR. 4. Patient is iron deficient. May need IV iron treatment per discretion of Dr. Lozoya. 5. For the she has not moved her bowels today we will see how she does. If she continues to get constipated we will give her some stool softeners. 6. GI prophylaxis PPI as above. 7. Above plan discussed with the patient and the family and all questions were answered. cc: MD Frankie Davis MD [facility]
[2016-09-16 13:30] LABS: FREE T4 0.79 ng/dL (0.93-1.70)
[2016-09-16] MEDS: SODIUM CHLORIDE 0.9% INJ SCH (13:47)
--- NOTE | 2016-09-16 15:11 | ECHO REPORT ---
ORDER DATE: 09/16/2016 ECHOCARDIOGRAPHIC MEASUREMENTS: 1. Interventricular septum 1.3. Left ventricular posterior wall 1.0. Diastolic diameter 5.0. Left atrium 5. Aorta 2.8. 2. Mitral valve leaflets are normal. There is mitral annular calcification. 3. Tricuspid valve was normal. 4. Aortic valve leaflets are sclerosed, trileaflet, opening normally. Pulmonic valve was normal. There is mild pulmonary regurgitation. 5. There is biatrial enlargement. 6. Normal left ventricular cavity size. Mild concentric left ventricular hypertrophy. Estimated ejection fraction of 55-60%. 7. There is mild tricuspid regurgitation. Mild mitral regurgitation. Peak velocity across the tricuspid valve was 3.4 m/sec. Pulmonary artery systolic pressure 55 mmHg. 8. Peak velocity across the aortic valve less than 2 m/sec. By Doppler studies there is no aortic stenosis or regurgitation. 9. There is no pericardial effusion. Anterior echo-free space suggestive of pericardial fat pad was noted. There is no obvious intracardiac mass or thrombus seen. cc: MD Chandler Phoenix MD Jagan Reddy, MD
[2016-09-16 15:28] LABS: CK INDEX 2.1 (0.0-2.5); CK-MB 5.19 ng/mL (0.0-5.0)
[2016-09-16] MEDS: DILAUDID IV PRN (16:11)
[2016-09-16 16:54] LABS: BASO% 0.1 % (0.0-0.8); EOS# 0.07 X1000 (0.0-0.7); EOS% 0.6 % (0.0-10.0); HEMATOCRIT 23.4 % (37.0-47.0); HEMOGLOBIN 7.3 g/dL (12.0-16.0); IMM GRAN# 0.03 X1000 (0.0-0.04); IMM GRAN% 0.3 % (0.0-0.5); LYMPH# 0.57 X1000 (1.2-3.4); LYMPH% 5.1 % (20.5-51.1); MANUAL DIFF NEEDED? YES; MCH 30.3 PG (27-31); MCHC 31.2 g/dL (33-37); MCV 97.1 FL (81-99); MONO# 0.56 X1000 (0.11-0.59); MONO% 5.1 % (1.7-9.3); MPV 10.1 FL (7.4-10.4); NEUT% 88.8 % (42.2-75.2); PLT 257 X1000 (130-400); RBC 2.41 XMIL (4.2-5.4)
[2016-09-16 17:04] LABS: BASO 1 % (0-1); LYMPHS 3 % (21-51); MONO 5 % (1-9); POLYCHROM OCCASIONAL
[2016-09-16] MEDS ORDERED: VITAMIN K 10 MG in NS 50 ML IV ONE (17:30)
--- NOTE | 2016-09-16 19:54 | PROGRESS NOTE ---
DATE: 09/16/2016 SUBJECTIVE: Patient is resting in bed. Her adopted son was present at bedside. She denies any nausea, vomiting or vomiting blood. She did not have any bowel movements yet. She was able to eat better today. She denies any signs of overt GI bleeding. Dr. Lozoya saw her today and we will discuss with him regarding the status of her carcinoid syndrome. The patient has been evaluated by Nephrology and Cardiology for renal insufficiency and broad complex tachycardia. OBJECTIVE: Vitals: Temperature 98.3, pulse of 88, respiratory rate 18, blood pressure 130/62, saturating 100% on 2 L nasal cannula. General: Patient is obese, lying in bed, in no acute distress. HEENT: Pale conjunctivae. No icterus. Neck: Supple. Abdomen: Obese, soft, nontender, nondistended. Bowel sounds are present. No guarding. No rebound. Extremities: No cyanosis, clubbing. Neurologic: She is alert, awake, oriented. LABORATORY: Hemoglobin and hematocrit is 7.3, 23.4, white count 11.2, and platelet count of 257,000, MCV of 97.1. PT of 34.5, INR 3.06. Her glucose of 113. Troponin is 0.037. Sodium 140, potassium 4, chloride 110, bicarb 20, anion gap of 14, BUN of 96, creatinine of 3.4, glucose of 120, calcium 7.6, phosphorus 5.2, magnesium 2, AST 12, ALT 8, alkaline phosphatase 37, total protein 5, albumin 3.1, total bilirubin is 0.17. ProBNP is 12,096. IMPRESSION/PLAN: 1. Coagulopathy secondary to Coumadin which has been held. In this regard, we will give vitamin K and recheck her INR in the morning. If INR is less than 1.5, we will proceed with EGD. 2. Anemia. We will schedule for EGD tomorrow to evaluate for any kind of peptic ulcer disease as the patient had been on celecoxib at home. 3. Carcinoid syndrome with a history of appendiceal carcinoid discovered in 2004. She is receiving somatostatin analog once a month by the Dr. Lozoya. We will discuss the results of previous PET scan with him which was as an outpatient. 4. Iron deficiency anemia. She may benefit from oral/ IV iron treatment. We will leave this at discretion of Dr. Lozoya. 5. Gastrointestinal prophylaxis with proton pump inhibitors twice daily. 6. Further recommendations are pending the hospital course. I discussed the plan of care with the patient and family. cc: MD Frankie Doyle MD Naveen T. Lobo, MD MTDD
[2016-09-16] MEDS: TOPROL XL PO SCH (20:23)
[2016-09-17] MEDS: NS 1,000 ML IV SCH ×3 (01:37→16:24)
[2016-09-17] MEDS: CARAFATE LIQUID PO SCH ×4 (01:37→20:58)
[2016-09-17] MEDS: PROTONIX IV SCH ×3 (01:37→23:32)
[2016-09-17 05:34] LABS: MANUAL DIFF NEEDED? NO
[2016-09-17 06:39] LABS: BASO% 0.2 % (0.0-0.8); EOS# 0.32 X1000 (0.0-0.7); EOS% 3.5 % (0.0-10.0); HEMATOCRIT 22.4 % (37.0-47.0); HEMOGLOBIN 6.8 g/dL (12.0-16.0); IMM GRAN# 0.02 X1000 (0.0-0.04); IMM GRAN% 0.2 % (0.0-0.5); LYMPH# 0.65 X1000 (1.2-3.4); MCH 29.6 PG (27-31); MCHC 30.4 g/dL (33-37); MCV 97.4 FL (81-99); MONO# 0.84 X1000 (0.11-0.59); MONO% 9.1 % (1.7-9.3); MPV 9.9 FL (7.4-10.4); PLT 239 X1000 (130-400)
[2016-09-17 06:55] LABS: ALBUMIN 2.9 g/dL (3.5-5.0); CALCIUM 7.5 mg/dL (8.8-10.2); POTASSIUM 4.2 mmol/L (3.5-5.1); TOTAL BILIRUBIN 0.31 mg/dL (0.20-1.00); TOTAL PROTEIN 4.3 g/dL (6.3-8.3)
[2016-09-17 07:05] LABS: INR 1.55; PROTIME 16.7 Seconds (9.2-11.7)
[2016-09-17] MEDS: ALBUTEROL NEB INH PRN ×2 (07:45→19:00)
[2016-09-17] MEDS: ADVAIR 250/50 DISKUS INH SCH ×2 (07:45→18:59)
[2016-09-17 09:03] LABS: UR CREATININE 43.6 mg/dL (11-20); UR CREATININE TOTAL 795.7 mg/24 (600-1600); UR PROTEIN 7.7 mg/dL
[2016-09-17] MEDS ORDERED: VITAMIN K SUBQ ONE (09:09)
--- NOTE | 2016-09-17 09:10 | PROGRESS NOTE ---
DATE: 09/17/2016 LEVEL OF DOCUMENTATION: Level 3 documentation. SUBJECTIVE: Interval history was reviewed. Patient was seen in my office with a symptomatic anemia. I did discuss with Dr. Lozoya. He is planning to do the iron infusion. In the meantime, she got admitted to the hospital with symptomatic anemia and shortness of breath. REVIEW OF SYSTEMS: Patient denies of any GI symptoms. No melena. She was receiving 2 units of packed RBCs. She was seen by Dr. Lott. The Coumadin was stopped and scheduled for EGD. Past medical history, past surgical history, and medicines were reviewed. PHYSICAL EXAMINATION: Vital Signs: On examination, the patient is afebrile, pulse is 84, blood pressure is 120/50, 2 L of nasal canula 100%. HEENT Examination: Slightly pale. Neck: Supple. No lymphadenopathy. JVD is normal. Chest: Clear to auscultation. Port seen on the right side. Abdomen: Belly is soft, obese, nontender. No signs of peritonitis. Extremities: No peripheral edema, cyanosis, clubbing. Neurologic: Examination nonfocal. INVESTIGATIONS: White cell count 9.2, hematocrit 22, platelets 239,000. PT 16, INR 1.5. SMA 7: Sodium 146, potassium 4.2, chloride is 113, BUN is 92, creatinine 3.4. Magnesium 2. Liver function tests were normal. ProBNP 12,000. Urinalysis is clear. Thyroid functions are normal. B12 and folate were normal. ASSESSMENT AND PLAN: 1. Symptomatic anemia with chronic kidney disease. Rule out gastrointestinal bleeding. BUN is out of proportion to the creatinine. Awaiting for esophagogastroduodenoscopy. 2. Anemia is 22. Transfuse 1 unit of packed RBCs. Continue on intravenous proton pump inhibitor. 3. History of congestive heart failure. Decreased intravenous fluids after blood transfusion. 4. Carcinoid syndrome, status post port on the right side, on Sandostatin under the care of Dr. Lozoya. 5. Chronic kidney disease. Baseline creatinine is 3.4. Dr. Elliott is following. 6. Anemia, chronic kidney disease. Follow up on SPEP and also check EPO levels. 7. Gout, on Zyloprim. 8. Hypertension, heart disease with diastolic heart failure and with a wide complex tachycardia, seen by Dr. Greenberg. 9. Discussed with family. 10. Level of documentation, more than 35 minutes. cc: Frankie Munoz MD
[2016-09-17] MEDS ORDERED: VITAMIN K 10 MG in NS 50 ML IV ONE (10:00)
[2016-09-17] MEDS ORDERED: DIPRIVAN 1% ONE (10:40)
--- NOTE | 2016-09-17 10:52 | PROGRESS NOTE ---
DATE: 09/17/2016 SUBJECTIVE: The patient is currently resting on a stretcher. She is being prepared to go down for an EGD. She is awake and alert. No acute distress. OBJECTIVE: Vital signs: Temperature 98.4 degrees, pulse 84, respiratory rate 18, blood pressure 121/50. Intake 2.8 liters, output 1.2 liters. PHYSICAL EXAMINATION: General: This is an elderly female, resting on a stretcher. Again, awake and alert and oriented x4. HEENT: Normocephalic, atraumatic. Conjunctivae are pale. Oral mucosa is moist. Neck: Supple. Trachea midline. There is no JVD. Cardiovascular: Regular rate and rhythm. There is no murmur or gallop appreciated. Pulmonary: She has equal excursion. She is clear bilaterally. Abdomen: Soft with positive bowel sounds. No tenderness. Genitourinary: Not inspected. She is voiding. Extremities: No clubbing, cyanosis, or edema. She is moving all extremities without difficulty. Integumentary: Skin is warm and dry without rash or lesion. LABORATORY DATA: WBC of 9.2, hemoglobin 6.8, hematocrit 22.6, and platelet count of 239,000. Sodium 146, potassium 4.2, chloride 113, CO2 of 19, BUN 92, creatinine 3.4. ASSESSMENT AND PLAN: 1. Chronic kidney disease with improvement of her creatinine since she came in the hospital. Her baseline creatinine is 2.5. She still has profound anemia and is requiring blood transfusion even this morning. We will continue to monitor, and once her anemia has been resolved, we will be able to further stratify her renal function. She has no absolute indications for dialysis at this time. We will continue to follow along closely. 2. Electrolytes, acid-base balance. These are acceptable. 3. Anemia. Again, she is to go for esophagogastroduodenoscopy today. 4. Hypertension, controlled. 5. Fluid volume. She is in positive territory, but does not appear overloaded clinically. Seen, data reviewed, discussed with Patrice Blandon on 09/17/16. I agree with the above assessment and plan of care. rg Dictated by CLARA Carey for Travon Elliott MD cc: MD Frankie Zepeda MD MTDD
[2016-09-17] MEDS ORDERED: NS 500 ML ONE (11:03)
[2016-09-17] MEDS ORDERED: ANESTHESIA PB SET 88 IN 5742 ONE (11:03)
[2016-09-17] MEDS ORDERED: EXTENSION SET 32 IN 4522 ONE (11:03)
[2016-09-17] MEDS ORDERED: BENADRYL IV ONE (11:05)
[2016-09-17] MEDS ORDERED: SOLU-MEDROL IV ONE (11:05)
[2016-09-17] MEDS ORDERED: PEPCID IV ONE (11:06)
[2016-09-17] MEDS ORDERED: SODIUM CHLORIDE 0.9% INJ ONE (11:06)
[2016-09-17] MEDS ORDERED: GOLYTELY PO ONE ×2 (11:30→14:00)
[2016-09-17] MEDS ORDERED: INJECTAFER 750 MG in NS 250 ML IV ONE (11:30)
[2016-09-17] MEDS: ZYLOPRIM PO SCH (11:33)
[2016-09-17] MEDS: APRESOLINE PO SCH ×2 (11:33→20:59)
[2016-09-17] MEDS: PREDNISONE PO SCH (11:33)
[2016-09-17] MEDS: KLOR-CON PO SCH ×2 (11:33→20:58)
[2016-09-17] MEDS: DILAUDID IV PRN (11:34)
[2016-09-17] MEDS: SODIUM CHLORIDE 0.9% INJ SCH ×2 (13:38→23:32)
--- NOTE | 2016-09-17 14:14 | OPERATIVE NOTE ---
PROCEDURE DATE: 09/17/2016 ATTENDING PHYSICIAN: Lori Munoz MD PRIMARY ONCOLOGIST: Jonathan Lozoya MD PROCEDURE: Esophagogastroduodenoscopy with biopsy of the third portion of duodenum lesion. PREOPERATIVE DIAGNOSES: 1. Anemia unclear etiology. 2. Renal insufficiency being evaluated by Dr. Elliott. 3. History of appendiceal carcinoid, which was detected in 2004, when it ruptured required appendectomy and since then, she has been following with Dr. Lozoya getting monthly somatostatin analog Depo shots once a month. 4. Obesity. 5. History of colon polyps in 2013. 6. Reflux disease. POSTOPERATIVE DIAGNOSES: 1. Normal esophagus, entire length. 2. Z-line visualized at 39 cm. 3. Evidence of gastritis of body and antrum, mild erosive type. 4. Normal fundus, cardia, incisura. 5. Evidence of a sessile polypoidal lesion at the junction of 2nd and third portion of duodenum, measuring more than 1-2 cm. This was biopsied to evaluate for villous adenoma versus carcinoid. Otherwise, normal duodenal bulb and second portion of duodenum. ESTIMATED BLOOD LOSS: Minimal. COMPLICATIONS: None. ANESTHESIA: Monitored anesthesia care. SPECIMENS: Third portion of duodenal sessile polypoidal lesion status biopsy sent to Surgical Pathology to evaluate for carcinoid versus sessile adenoma. DESCRIPTION OF PROCEDURE: After informed consent, the patient explained the risks, benefits, indications, alternatives, the patient was prepared for EGD. The risks including infection, bleeding, pain, trauma to the surrounding structures, perforation explained to the patient among others and she acknowledged understanding and agreed to proceed with procedure. The patient was brought to the OR. She was turned in the left lateral position. A bite block was placed in patient's mouth. After adequate monitored anesthesia care, the upper scope was introduced and it was traversed all the way to the third portion of the duodenum. The esophagus normal in its entire length. The Z-line visualized at 39 cm. The scope was then advanced into the stomach. There was evidence of mild erythema, erosions in the body and antrum suggesting mild gastritis. Retroflexion revealed normal fundus, cardia, incisura. The scope was then withdrawn to the duodenum, which showed evidence of normal duodenal bulb and second portion of duodenum. Just at the junction of D2 and D3, we found a sessile polypoidal lesion on the medial aspect measuring about 1-2 cm. This was biopsied to evaluate for villous adenoma versus carcinoid. The area was observed and it had good hemostasis spontaneously. The air was removed as the scope withdrawn. The patient tolerated the procedure and is currently monitored in this OR in stable condition. I discussed the findings with the patient on waking up and all questions answered. RECOMMENDATION: 1. The patient will followup on the biopsies from the third portion of duodenum sessile polypoid lesion. 2. We will check serum serotonin level. 3. We will check serum chromogranin A levels. 4. We will keep her on Protonix twice daily. 5. We will keep a close eye on her hemoglobin and hematocrit and type and cross , transfuse to keep hematocrit more than 25%. 6. The patient will be scheduled for colonoscopy tomorrow with Dr. Jones. The patient and clear liquid diet today and given gallon of GoLYTELY today and NPO past midnight. 7. She is undergoing renal investigation for worsening renal insufficiency, which may have contributed to anemia of chronic disease, may benefit from EPO preparation, but I will leave it to the discretion of the primary care team. We will start her on Iron-C 1 capsule b.i.d. 8. The above plan of care discussed with the patient. All questions. cc: MD Frankie Doyle MD Naveen T. Lobo, MD Reginald D. Gladish, MD MTDD
[2016-09-17] MEDS: LASIX IV SCH (16:24)
--- NOTE | 2016-09-17 16:47 | CONSULTATION ---
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 She has multifactorial anemia, iron deficiency anemia and chronic kidney disease. 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 She also has known chronic renal insufficiency. Baseline creatinine is around 2.5. She also has a left lower extremity DVT and PE and has had an IVC filter placed on Coumadin daily. Came to the ER with weakness and fatigue over the last week. She also apparently had some dyspnea and came to the emergency room where the hemoglobin was 5.7. Workup has ultimately revealed iron deficiency. She was scheduled to have some IV iron in our clinic today. She has received packed red cells in the hospital, but her hemoglobin continues to come down. Today it is 6.8, her hematocrit is 22.4, her creatinine is 3.4, which is slightly improved from what it was a couple of days ago. She is scheduled for an EGD today. Patient denies any obvious clinical bleeding, any black or bright red stool, new lumps, bumps or bone pain. She is complaining of some heartburn. Denies nausea, fevers, chills. REVIEW OF SYSTEMS: Have been reviewed and are negative unless indicated in HPI. PAST MEDICAL HISTORY: 1. Recurrent carcinoid tumor with carcinoid syndrome. 2. Chronic renal insufficiency. 3. Iron-deficiency anemia. 4. Left lower extremity DVT and PE, status post IVC filter placement. 5. Peptic ulcer disease. 6. Pickwickian syndrome. 7. Hypertension. 8. Diabetes type 2. ALLERGIES: Penicillin and codeine. FAMILY/SOCIAL HISTORY: Patient denies any alcohol, tobacco or illicit drug use. She has a good family social support. PHYSICAL EXAMINATION: Vital Signs: Stable. Constitutional: This is an female in no acute distress. HEENT: Head is normocephalic, atraumatic. Pupils equal, round, symmetric. Mucous membranes are moist. Cardiovascular: S1, S2 audible to auscultation without heaves, lifts, thrills, or murmurs. Pulmonary: Breath sounds clear to auscultation with normal respiratory effort. Abdomen: Soft, nontender, nondistended. Positive bowel sounds in all 4 quadrants. Extremities: There is generalized edema to lower extremities. Musculoskeletal: No bony abnormalities. Neurologic: Alert and orient x3. DIAGNOSTIC DATA: WBC is 9.23, hemoglobin 6.8, hematocrit 23.4, platelet count 239,000. INR is 1.5. Sodium 146, potassium 4.2, BUN 92, creatinine is 3.4. ASSESSMENT AND PLAN: 1. Anemia, likely secondary to gastrointestinal bleed as well as some iron-deficiency component and chronic renal insufficiency component. The patient is for esophagogastroduodenoscopy today. We will replace her iron with Injectafer 750 mg. We will give her additional premedication as she has had a reaction to Infed in the past, but she has tolerated Injectafer fine with additional premedication. She received it last in February in our clinic. We will had Benadryl and methylprednisolone and Pepcid prior to giving her that and monitor CBC. She is receiving 1 unit of packed red cells today. 2. Iron-deficiency anemia. Plans as above. 3. Chronic renal insufficiency. Per Nephrology and primary care. 4. Left lower extremity deep venous thrombosis and pulmonary embolus status post inferior vena cava filter placement. Patient's Coumadin is on hold for now secondary to above. 5. She has also received a dose of vitamin K in anticipation of her esophagogastroduodenoscopy. Dictated by CLARA Aragon for Jonathan Lozoya MD cc: CLARA Aragon MD Jagan Reddy, MD
[2016-09-17] MEDS: ICAR-C PO SCH ×2 (20:58→21:10)
[2016-09-17] MEDS: TOPROL XL PO SCH (20:59)
[2016-09-18] MEDS: CARAFATE LIQUID PO SCH ×4 (02:27→21:45)
[2016-09-18 05:24] LABS: BASO% 0.1 % (0.0-0.8); HEMATOCRIT 27.4 % (37.0-47.0); HEMOGLOBIN 8.7 g/dL (12.0-16.0); IMM GRAN# 0.03 X1000 (0.0-0.04); IMM GRAN% 0.3 % (0.0-0.5); LYMPH# 0.43 X1000 (1.2-3.4); LYMPH% 3.6 % (20.5-51.1); MANUAL DIFF NEEDED? YES; MCHC 31.8 g/dL (33-37); MCV 94.5 FL (81-99); MONO# 0.44 X1000 (0.11-0.59); MONO% 3.7 % (1.7-9.3); MPV 9.9 FL (7.4-10.4); NEUT% 92.3 % (42.2-75.2); PLT 252 X1000 (130-400)
[2016-09-18 05:39] LABS: ALBUMIN 3.3 g/dL (3.5-5.0); CALCIUM 7.7 mg/dL (8.8-10.2)
[2016-09-18 05:41] LABS: BANDS 6 % (0-1); LYMPHS 4 % (21-51); MONO 2 % (1-9)
[2016-09-18] MEDS: ADVAIR 250/50 DISKUS INH SCH ×2 (07:09→19:33)
[2016-09-18] MEDS ORDERED: LASIX IV SCH (08:15)
--- NOTE | 2016-09-18 09:11 | PROGRESS NOTE ---
DATE: 09/18/2016 SUBJECTIVE: 1. Status post 1 unit of packed RBCs. 2. The patient was seen by Dr. Lott. EGD was done. FINDINGS NOTED: Apparently patient has 1.2 cm polypoid lesion at the junction of second and third portion of the duodenum. Biopsy was done pending. She has bright red blood per rectum yesterday, which are heme grossly positive. REVIEW OF SYSTEMS: None reported. PHYSICAL EXAMINATION: Vital Signs: Vitals are stable. HEENT: Exam within normal limits. Neck: Supple. Chest: Clear to auscultation. Heart: Sounds are regular. Port seen on the right side. Abdomen: Belly is soft, nontender. Good bowel sounds. No masses palpable. Neurological exam: No deficits. INVESTIGATIONS: White cell count 11, hematocrit 27, platelets 252. INR 1.5. SMA 7: Sodium 145, potassium 4.0, chloride 110. BUN 81, creatinine 3.1, glucose 121, total protein 5.0. ASSESSMENT AND PLAN: 1. Symptomatic anemia due to bleeding polyp in the duodenum, etiology to be determined. Follow up on pathology report. 2. Anemia, ongoing bleeding. Will transfuse 1 unit of packed red blood cells. Maintain hematocrit around 30. 3. Chronic kidney disease, stable. 4. Anticoagulation. Will stop the deep vein thrombosis status post inferior vena caval filter. 5. Diastolic heart failure. Paroxysmal atrial fibrillation, stable. PLAN OF CARE: Today is transfusion of 1 unit of packed RBCs. Check the labs in the morning. Waiting for colonoscopy. LEVEL OF CARE: 25 minutes. cc: Frankie Munoz MD
--- NOTE | 2016-09-18 11:30 | PROGRESS NOTE ---
DATE: 09/18/2016 SUBJECTIVE: Patient is resting in bed. She is preparing to go down for a colonoscopy later this morning. OBJECTIVE: Vital Signs: Temperature 98.3 degrees, pulse 93, respiratory rate 18, blood pressure 132/62. Intake 1.7 L. Output 600 mL. PHYSICAL EXAMINATION: General: Elderly female, resting in bed. No acute distress. HEENT: Normocephalic, atraumatic. Oral mucosa moist. Neck: Supple. No JVD. Cardiovascular: Regular rate and rhythm. No murmur or gallop. Pulmonary: Equal excursion. She is clear bilaterally. Abdomen: Soft. Positive bowel sounds. : Not inspected. She has a Martin catheter. Extremities: No clubbing, cyanosis, or edema. Integumentary: Skin is warm and dry. LAB DATA: WBC of 11.9, hemoglobin 8.7. Sodium 145, potassium 4.0, CO2 18, BUN 81, creatinine 3.1, albumin 3.3, calcium 7.7, phosphorus 4.4. ASSESSMENT AND PLAN: 1. Chronic kidney disease. Her creatinine continues to improve. Check labs in the morning. 2. Anemia secondary to blood loss. She will receive another unit of packed red blood cells today per PCP. She is to go for a colonoscopy later this morning. She has continued to have some bright red blood per rectum per report. 3. Hypertension, controlled. 4. Fluid volume. She is in positive territory. Does not appear to be overloaded on exam. 5. Electrolytes, acid-base balance. These are acceptable. Seen, data reviewed, discussed with Patrice Blandon on 09/19/15. I agree with the above assessment and plan of care. rg Dictated by CLARA Carey for Travon Elliott MD cc: MD Frankie Zepeda MD [facility]
[2016-09-18] MEDS: KLOR-CON PO SCH ×2 (13:03→21:45)
[2016-09-18] MEDS: APRESOLINE PO SCH ×2 (13:04→21:43)
[2016-09-18] MEDS: PREDNISONE PO SCH (13:04)
[2016-09-18] MEDS: ICAR-C PO SCH ×2 (13:05→21:45)
[2016-09-18] MEDS: ZYLOPRIM PO SCH (13:05)
[2016-09-18] MEDS: PROTONIX IV SCH (13:06)
[2016-09-18] MEDS: SODIUM CHLORIDE 0.9% INJ SCH (13:06)
[2016-09-18] MEDS: DILAUDID IV PRN (13:06)
[2016-09-18] MEDS ORDERED: DIPRIVAN 1% ONE (13:12)
--- NOTE | 2016-09-18 13:41 | OPERATIVE NOTE ---
PROCEDURE DATE: 09/18/2016 DATE OF PROCEDURE: 09/18/2016. PROCEDURE: Colonoscopy. PREOPERATIVE DIAGNOSIS: Rectal bleeding. POSTOPERATIVE DIAGNOSIS: Diverticulosis. Old blood in the colon. No active bleeding. DESCRIPTION OF PROCEDURE IN DETAIL: After informed consent and adequate intravenous sedation by anesthesia, the scope was introduced and advanced all the way into the cecum. The patient had some old blood throughout the colon. However, there is no fresh blood or clots. There was no active bleeding seen. The patient has diffuse diverticulosis, but again no particular diverticular area shows any bleeding. The scope was withdrawn. The patient tolerated the procedure well without any immediate complications. cc: MD Frankie Wharton MD
[2016-09-18] MEDS: NS 1,000 ML IV SCH (15:50)
[2016-09-18] MEDS: LASIX IV SCH (17:00)
[2016-09-18] MEDS: TOPROL XL PO SCH (21:44)
[2016-09-19] MEDS: PROTONIX IV SCH ×2 (00:16→12:34)
[2016-09-19] MEDS: SODIUM CHLORIDE 0.9% INJ SCH (00:16)
[2016-09-19 05:12] LABS: MANUAL DIFF NEEDED? NO
[2016-09-19 05:21] LABS: BASO% 0.2 % (0.0-0.8); EOS# 0.22 X1000 (0.0-0.7); EOS% 2.1 % (0.0-10.0); HEMATOCRIT 26.4 % (37.0-47.0); HEMOGLOBIN 8.2 g/dL (12.0-16.0); IMM GRAN# 0.03 X1000 (0.0-0.04); IMM GRAN% 0.3 % (0.0-0.5); LYMPH# 0.71 X1000 (1.2-3.4); LYMPH% 6.8 % (20.5-51.1); MCH 28.7 PG (27-31); MCHC 31.1 g/dL (33-37); MCV 92.3 FL (81-99); MONO# 0.83 X1000 (0.11-0.59); MPV 9.7 FL (7.4-10.4); NEUT% 82.6 % (42.2-75.2); PLT 222 X1000 (130-400); RBC 2.86 XMIL (4.2-5.4)
[2016-09-19] MEDS: CARAFATE LIQUID PO SCH ×4 (06:29→20:22)
[2016-09-19] MEDS: ALBUTEROL NEB INH PRN (07:28)
[2016-09-19] MEDS: ADVAIR 250/50 DISKUS INH SCH (07:28)
[2016-09-19] MEDS: ZYLOPRIM PO SCH (08:42)
[2016-09-19] MEDS: PREDNISONE PO SCH (08:42)
[2016-09-19] MEDS: KLOR-CON PO SCH ×2 (08:42→20:22)
[2016-09-19] MEDS: ICAR-C PO SCH ×2 (08:42→20:22)
[2016-09-19] MEDS: APRESOLINE PO SCH ×2 (08:42→20:22)
[2016-09-19] MEDS: TOPROL XL PO SCH ×2 (08:43→20:22)
--- NOTE | 2016-09-19 09:23 | PROGRESS NOTE ---
DATE: 09/19/2016 SUBJECTIVE: Patient resting in bed. She states that she feels better. She thinks she will get out of the hospital by Saturday. OBJECTIVE: Vital Signs: Temperature 98.1 degrees, pulse 83, respiratory rate 18, blood pressure 136/68. Intake 855 mL. Output 1.2 L. Physical Examination: General: An elderly female resting in bed. No acute distress. HEENT: Normocephalic, atraumatic. Her oral mucosa is moist. Arcus senilis noted. Neck: Supple. No JVD. Cardiovascular: Regular rate and rhythm. There is no murmur or gallop appreciated. Pulmonary: She has equal excursion. She is clear bilaterally. She remains on 2 L nasal cannula oxygen supplementation. Abdomen: Soft, with positive bowel sounds. : Not inspected. Extremities: There is no clubbing, cyanosis, or edema. She is moving all extremities without difficulty. Integumentary: Skin is warm and dry. No rash or lesion appreciated. Lab Data: WBC of 10.3, hemoglobin 8.2. Chemistry is pending. ASSESSMENT AND PLAN: 1. Chronic kidney disease. Her renal function had improved consistently throughout the hospitalization. Her chemistry panel is pending this morning. I anticipate that she will have continued improvement. Again, we would just need to see her in the office as an outpatient in about 2 weeks after discharge to follow up on her chronic kidney disease. 2. Anemia secondary to blood loss. She has received packed red blood cells while she has been in the hospital. Followed by primary and gastroenterology. 3. Hypertension, fluid volume, controlled. She is in actual negative territory overnight. Seen, data reviewed, discussed with Patrice Blandon on 09/19/16. I agree with the above assessment and plan of care. rg Dictated by CLARA Carey for Travon Elliott MD cc: MD Frankie Zepeda MD [facility]
[2016-09-19] MEDS: LASIX IV SCH (12:36)
--- NOTE | 2016-09-19 18:22 | PROGRESS NOTE ---
DATE: 09/19/2016 REQUESTING PHYSICIAN: Dr. Munoz. SUBJECTIVE: The patient is currently resting in bed. She denied any nausea vomiting or vomiting blood. She had been noticing some old blood until yesterday but today so far she had not had any blood in the stools. She had a colonoscopy done yesterday by Dr. Jones that showed evidence of old blood in the colon and diverticulosis. No active bleeding was noted on the colonoscopy. The patient denies any fevers, rigors, chills. The patient has so far received 5 units of blood transfusion since admission. OBJECTIVE: Vital Signs: Temperature 97.8, pulse rate of 78, respiratory rate 18, blood pressure 120/60, saturating 98% on nasal cannula 2 L. General Appearance: She is obese , lying in bed, in no acute distress. HEENT: Pale conjunctivae. No icterus. Neck: Supple. Abdomen: Obese, soft, nontender, nondistended. Bowel sounds present. No guarding. No rebound. Extremities: No cyanosis or clubbing. Neurologic: She is alert, awake, oriented x3. LABS: Hemoglobin and hematocrit is 8.2 and 26.4, white count of 10.3, platelet count of 222,000, MCV of 92.3, INR 1.5, PT of 16.7, PT of 33, blood glucose of 145. BUN is 81, creatinine is 3.1. Chromogranin A level is 317. Serum serotonin level is currently pending. ASSESSMENT AND PLAN: 1. Polypoidal lesion in the third portion of duodenum which was biopsied on EGD on 09/17/2016 came back as edematous polyp with villus features, no high-grade dysplasia invasion was noted in the biopsy. I think this polyp needs to be removed on enteroscopy. But since the patient has coagulopathy her risk of bleeding from the procedure is a little high so will try to reverse the INR and see if she would like to get it done during this admission. 2. Diverticulosis and old blood in the colon likely causing gastrointestinal blood loss. She will need to be typed and crossed, transfused to keep the hematocrit more than 25%. 3. Carcinoid syndrome being managed by Dr. Lozoya. 4. Obesity. Patient may benefit from controlled weight loss, so she needs to cut down on carbohydrates, sweets, and excessive fried foods. 5. Renal insufficiency being managed by Dr. Elliott. 6. Anticoagulation. We may give her a dose of vitamin K to help get the INR to be less than 1.5. Above plan of care was discussed with patient and all questions answered. cc: MD Frankie Doyle MD Naveen T. Lobo, MD MTDD
--- NOTE | 2016-09-19 19:58 | PROGRESS NOTE ---
DATE: 09/19/2016 SUBJECTIVE: Interval history was reviewed. Patient had EGD done, showed 1.2 cm adenomatous polyps with villous features. Dr. Jones performed the colonoscopy and nothing was significant. The patient is not offering any complaints. REVIEW OF SYSTEMS: None reports. OBJECTIVE: Vitals: Afebrile, hemodynamics are stable. Nasal oxygen 2 L on 98% . Input and output are even. HEENT: Slightly pale. Neck: Supple. Chest: Clear. Heart : Sounds are regular. Had a port seen on the right side. Abdomen: Belly is soft, obese, nontender. Good bowel sounds. No masses palpable. Extremities: No peripheral edema, cyanosis. Neurologic: No obvious neurological deficits. INVESTIGATIONS: CBC: White cell count 10, hematocrit 26, platelets 222,000. SMA7: Sodium 145, potassium 4, chloride 110, BUN 81, creatinine 3.1, glucose 114. The SPEP was negative. Serum chromogranin level is 317. Creatinine clearance is 16. ASSESSMENT AND PLAN: 1. Ongoing gastrointestinal bleeding from the polyp, hematocrit is still low. We will transfuse a unit of packed red blood cells after that iron infusion. 2. Discontinue intravenous fluids. 3. Follow up on the polyp is adenomatous, villous features we will discuss with Dr. Lott. 4. History of deep venous thrombosis with inferior vena cava filter. Hold the Coumadin. 5. 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 Sandostatin is on hold. 6. If she is stable, hopefully will be discharged in the morning. We will check the complete blood count, SMA7 in the morning. The results discussed with the patient. LEVEL OF DOCUMENTATION: 25 minutes. cc: Frankie Munoz MD [facility]
[2016-09-20] MEDS: PROTONIX IV SCH ×2 (00:16→12:09)
[2016-09-20] MEDS: SODIUM CHLORIDE 0.9% INJ SCH (00:17)
[2016-09-20] MEDS: CARAFATE LIQUID PO SCH ×4 (02:02→21:02)
[2016-09-20 06:13] LABS: CALCIUM 7.7 mg/dL (8.8-10.2)
[2016-09-20 06:15] LABS: BASO% 0.1 % (0.0-0.8); EOS# 0.24 X1000 (0.0-0.7); EOS% 2.1 % (0.0-10.0); HEMATOCRIT 31.8 % (37.0-47.0); HEMOGLOBIN 10.1 g/dL (12.0-16.0); IMM GRAN# 0.04 X1000 (0.0-0.04); IMM GRAN% 0.3 % (0.0-0.5); LYMPH% 5.1 % (20.5-51.1); MANUAL DIFF NEEDED? YES; MCH 29.3 PG (27-31); MCHC 31.8 g/dL (33-37); MCV 92.2 FL (81-99); MONO# 1.05 X1000 (0.11-0.59); MPV 10.3 FL (7.4-10.4); NEUT% 83.4 % (42.2-75.2); PLT 218 X1000 (130-400); RBC 3.45 XMIL (4.2-5.4)
[2016-09-20 07:27] LABS: EOS 1 % (1-10); LYMPHS 11 % (21-51); MONO 6 % (1-9); NRBC 2 % (0-0)
--- NOTE | 2016-09-20 07:39 | PROGRESS NOTE ---
DATE: 09/20/2016 SUBJECTIVE: Patient resting in bed. She has had no nausea or vomiting overnight. She states she has not had any more bloody stools. She did have a colonoscopy previous. No active bleeding since. OBJECTIVE: Vital Signs: Temperature 98.2 degrees, pulse 82, respiratory rate 18, blood pressure 141/87. Intake 476 mL. Output 900 mL. General: This is an elderly female, resting in bed. She is awake, alert, no acute distress. HEENT: Normocephalic, atraumatic. Oral mucosa is moist. Neck: Supple. No JVD. Cardiovascular: Regular rate and rhythm without murmur or gallop. Pulmonary: Equal excursion. She has no increased work of breathing. She remains on 2 L nasal cannula. She is clear bilaterally. Abdomen: Soft. Positive bowel sounds. : Not inspected. She is voiding. Extremities: No clubbing, cyanosis, or edema. Is moving all extremities without difficulty. Integumentary: No rash or lesion. Skin is warm and dry. LAB DATA: WBC of 11.7, hemoglobin 10.1, hematocrit 31.8, and platelet count of 218,000. Sodium 145, potassium 4.0, chloride 113, CO2 20, BUN 72, creatinine 3.6. ASSESSMENT AND PLAN: 1. Chronic kidney disease. Renal function had improved throughout the hospitalization. She had a slight rise with creatinine overnight; however, BUN has continued to trend downward and improve. We will go ahead and order a 24 hour urine at this point secondary to the fact that it appears her renal function has stabilized. 2. Anemia secondary to blood loss. Followed by primary GI. She did have a old blood noted in colon during colonoscopy, with polyps. 3. Hypertension. Controlled. 4. Fluid volume. She remains in negative territory for the last several days. This may be contributing to her increased creatinine. 5. Polypoid lesion in the duodenum. Followed by primary GI. 6. Carcinoid syndrome. Followed by Dr. Lozoya. Seen, data reviewed, discussed with Patrice Blandon on 09/20/16. I agree with the above assessment and plan of care. rg Dictated by CLARA Carey for Travon Elliott MD cc: MD Frankie Zepeda MD MTDD
[2016-09-20] MEDS: ALBUTEROL NEB INH PRN ×2 (07:44→16:37)
[2016-09-20] MEDS: ADVAIR 250/50 DISKUS INH SCH ×2 (07:45→19:15)
[2016-09-20] MEDS: PREDNISONE PO SCH (08:21)
[2016-09-20] MEDS: TOPROL XL PO SCH ×2 (08:21→21:03)
[2016-09-20] MEDS: APRESOLINE PO SCH ×2 (08:21→21:02)
[2016-09-20] MEDS: KLOR-CON PO SCH ×2 (08:21→21:01)
[2016-09-20] MEDS: ZYLOPRIM PO SCH (08:21)
[2016-09-20] MEDS: ICAR-C PO SCH ×2 (08:21→21:01)
[2016-09-20] MEDS ORDERED: LINZESS PO ONE (12:05)
--- NOTE | 2016-09-20 13:05 | PROGRESS NOTE ---
DATE: 09/20/2016 SUBJECTIVE: The patient resting in bed. Her daughter is at the bedside. The patient denies any fevers, rigors, or chills. She was able to eat her breakfast this morning. The last bowel movement was 2 days ago. She denies any nausea, vomiting blood, or black stools. OBJECTIVE: Vital signs: Temperature is 97.4 degrees, pulse of 76, respiratory rate 18, blood pressure 143/80, satting 98% on 2 L. General appearance: Obese, lying in bed in no acute distress. HEENT: No pallor. No icterus. Neck: Supple. Abdomen: Obese, soft, nontender, nondistended. Bowel sounds normal. Extremities: No cyanosis, clubbing. Neurologic: Alert, awake, oriented. LABS: Hemoglobin and hematocrit is 10.1 and 31.8, white count 11.7, platelet count of 218, MCV of 92.2. INR of 1.5 and PT of 16.7 and PTT of 33. Sodium 140, potassium 4, chloride 113, bicarbonate 29, anion gap of 12, BUN of 72, creatinine 3.6, glucose of 104, calcium 7.7. Cromolyn- A level of 317 and serum serotonin level is pending. Third portion duodenum polyp biopsy showed fragments of adenomatous polyp with villous features. IMPRESSION AND PLAN: 1. Sessile polypoidal lesion in the third portion of the duodenum. In this regard, I will schedule patient for enteroscopy tomorrow with Dr. Jones for possible resection of the polypoidal lesion. We will check her PT, PTT and INR in the morning. Her Coumadin has been held so far. 2. Diverticulosis. Continue to avoid corn, nuts, and seeds in diet. 3. Constipation. We will start her on Linzess 145 mcg p.o. once daily starting today. 4. Anemia. Continue to follow, type and cross, transfuse as needed. 5. Adrenal insufficiency being followed by Dr. Elliott. 6. Carcinoid syndrome. We will await the results of serotonin levels. She will continue on somatostatin analog long-term preparation per Dr. Lozoya. 7. Gastrointestinal prophylaxis with proton pump inhibitors. 8. Further recommendation to follow pending hospitalist. I also discussed the risks, benefits, indications, alternatives of enteroscopy and polypectomy with the patient and patient's daughter at bedside. Explained the risk of infection, bleeding, trauma or perforation among others. They acknowledged understanding. Agreed to proceed with the procedure. cc: MD Frankie Doyle MD Naveen T. Lobo, MD Reginald D. Gladish, MD Ashish K. Basu, MD
--- NOTE | 2016-09-20 18:42 | PROGRESS NOTE ---
DATE: 09/20/2016 SUBJECTIVE: The patient is not offering any complaints. INTERVAL HISTORY: The patient did receive 5 units of packed RBCs. REVIEW OF SYSTEMS: None reported. BIOPSY FINDINGS: Adenomatous polyps at the third part of the duodenum with villus features. Findings discussed with the patient and Dr. Lott is going back to remove the entire lesion, which has been scheduled for tomorrow. PHYSICAL EXAMINATION: Vital Signs: Stable. HEENT: Within normal limits. Neck: Supple. No lymphadenopathy. Chest: Clear. Heart: Sounds are regular. Abdomen: Belly is soft, nontender. Good bowel sounds. Extremities: No peripheral edema, cyanosis, clubbing. Neurologic: Nonfocal. INVESTIGATIONS: White cell count 11, hematocrit 31, platelets 218. SMA-7: Sodium 145, potassium 4.0, chloride 113, BUN 72, creatinine 3.6. ASSESSMENT AND PLAN: 1. Anemia due to upper gastrointestinal bleeding due to precancerous polyps. We will go back on other EGD in the morning. 2. Anemia with acute blood loss, status post 5 units of packed red blood cells. Currently stable off Coumadin. 3. Chronic kidney disease. Stable. 4. Carcinoid syndrome. Stable. 5. Elevated levels of chromogranin. We will address the issue as an outpatient for Sandostatin. Recent PET scan was stable. LEVEL OF DOCUMENTATION: 25 minutes. Will follow up. cc: Frankie Munoz MD
[2016-09-21] MEDS: SODIUM CHLORIDE 0.9% INJ SCH (00:02)
[2016-09-21] MEDS: PROTONIX IV SCH ×2 (00:02→12:25)
[2016-09-21] MEDS: CARAFATE LIQUID PO SCH ×4 (01:25→20:04)
[2016-09-21] MEDS: DILAUDID IV PRN ×2 (04:28→18:47)
[2016-09-21 05:46] LABS: BASO% 0.2 % (0.0-0.8); EOS# 0.26 X1000 (0.0-0.7); EOS% 2.1 % (0.0-10.0); HEMATOCRIT 32.3 % (37.0-47.0); HEMOGLOBIN 10.3 g/dL (12.0-16.0); IMM GRAN# 0.04 X1000 (0.0-0.04); IMM GRAN% 0.3 % (0.0-0.5); LYMPH# 0.85 X1000 (1.2-3.4); MANUAL DIFF NEEDED? NO; MCH 29.6 PG (27-31); MCHC 31.9 g/dL (33-37); MCV 92.8 FL (81-99); MONO# 0.87 X1000 (0.11-0.59); MONO% 7.2 % (1.7-9.3); MPV 10.6 FL (7.4-10.4); NEUT% 83.2 % (42.2-75.2); PLT 216 X1000 (130-400); RBC 3.48 XMIL (4.2-5.4)
[2016-09-21 05:50] LABS: INR 0.98; PROTIME 10.3 Seconds (9.2-11.7); PTT 26.8 Seconds (22.0-36.0)
[2016-09-21 06:14] LABS: CALCIUM 7.5 mg/dL (8.8-10.2); POTASSIUM 4.1 mmol/L (3.5-5.1)
[2016-09-21] MEDS: ALBUTEROL NEB INH PRN ×3 (07:41→18:57)
[2016-09-21] MEDS: ADVAIR 250/50 DISKUS INH SCH ×2 (07:41→18:57)
[2016-09-21] MEDS: APRESOLINE PO SCH ×2 (08:38→20:05)
[2016-09-21] MEDS: TOPROL XL PO SCH ×2 (08:38→20:05)
--- NOTE | 2016-09-21 10:10 | PROGRESS NOTE ---
DATE: 09/21/2016 SUBJECTIVE: She is feeling some better today. She has plans for another upper endoscopy. No shortness of breath. OBJECTIVE: Vital Signs: Blood pressure 151/84, heart rate 83, respirations 20, afebrile. Intake 600 mL. Output 500 mL. PHYSICAL EXAMINATION: General: No acute distress. Skin: Warm and dry. Conjunctivae are pink. Neck veins are not distended. Oropharynx is moist. Heart: Regular. Lungs: Have equal breath sounds. No crackles. Abdomen: Soft, nontender. Bowel sounds present. Extremities: Have 1+ edema. No clubbing or cyanosis. LABORATORY DATA: Sodium 146, potassium 4.1, chloride 114, bicarbonate 19, BUN 71, creatinine 3.4. Hemoglobin 10.3. IMPRESSION: 1. Chronic kidney disease stage IV. We will collect 24-hour urine to quantify her renal function. 2. Electrolytes are acceptable. 3. Acid-base: Modest metabolic acidosis. No treatment at this time. 4. Anemia is stable. Primarily related to gastrointestinal blood loss. cc: MD Frankie Zepeda MD
--- NOTE | 2016-09-21 10:19 | PROGRESS NOTE ---
DATE: 09/21/2016 INTERVAL HISTORY: Patient is doing well status post 5 units of packed RBCs, and Dr. Jones is going to do a repeat EGD to look at the polyp at third part of the duodenum, which is precancerous. REVIEW OF SYSTEMS: None reported. PHYSICAL EXAMINATION: Vital Signs: Stable. HEENT: Within normal limits. Neck: Supple. No lymphadenopathy. No goiter. Chest: Clear. Heart: Sounds are regular. GI: Belly is soft, nontender. Good bowel sounds. Neurologic: No neurologic deficits. INVESTIGATIONS: White cell count 12, hematocrit 32, platelets 216,000. PT 10, INR 0.9. SMA 7. Sodium 146, potassium 4.1, BUN 71, creatinine 3.4. ASSESSMENT AND PLAN: 1. Symptomatic anemia due to acute blood loss from erythematous polyp, villous features at third part of the duodenum incompletely excised and going to relook again this morning by Dr. Jones. Based on that, further recommendations will be followed. 2. Gastrointestinal bleeding, stable. 3. Chronic kidney disease, stable and based on the EGD further recommendations will be followed. LEVEL OF DOCUMENTATION: 25 minutes. cc: Frankie Munoz MD
[2016-09-21] MEDS ORDERED: DIPRIVAN 1% 500 MG/50 ML BOTTLE ONE (10:54)
[2016-09-21] MEDS ORDERED: EPINEPHRINE SYRINGE ONE (11:20)
[2016-09-21] MEDS: KLOR-CON PO SCH ×2 (12:25→20:05)
[2016-09-21] MEDS: ICAR-C PO SCH ×2 (12:25→20:05)
[2016-09-21] MEDS: ZYLOPRIM PO SCH (12:26)
[2016-09-21] MEDS ORDERED: NS 500 ML ONE (12:29)
[2016-09-21] MEDS ORDERED: ANESTHESIA PB SET 88 IN 5742 ONE (12:29)
[2016-09-21] MEDS ORDERED: EXTENSION SET 32 IN 4522 ONE (12:29)
[2016-09-21] MEDS ORDERED: XYLOCAINE-MPF 2% ONE (12:29)
[2016-09-21] MEDS: PREDNISONE PO SCH (12:29)
--- NOTE | 2016-09-21 14:19 | OPERATIVE NOTE ---
PROCEDURE DATE: 09/21/2016 PROCEDURES: Esophagogastroduodenoscopy and polypectomy. PREOPERATIVE DIAGNOSIS: Duodenum polyp. POSTOPERATIVE DIAGNOSIS: A 3 cm villous adenoma in the periampullary region, status post polypectomy. After informed consent and adequate intravenous sedation by Anesthesia, the scope was introduced to the esophagus, stomach and duodenum. 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 The scope is withdrawn and change to duodenal scope and it appears to be in the periampullary region or right distal to the ampulla and this was held with snare and standard polypectomy done and 90% of the tumor was removed. The scope was withdrawn. The patient tolerated the procedure, transported back to recovery in satisfactory condition. Will hold her Coumadin for 2-3 weeks now that she had IVC and go back electively in 6 weeks and see if there is any residual polyp. cc: MD Frankie Wharton MD
[2016-09-22] MEDS: CARAFATE LIQUID PO SCH ×4 (01:58→20:30)
[2016-09-22] MEDS: PROTONIX IV SCH ×2 (01:58→13:05)
[2016-09-22] MEDS: SODIUM CHLORIDE 0.9% INJ SCH ×2 (01:58→13:05)
[2016-09-22] MEDS: ADVAIR 250/50 DISKUS INH SCH ×2 (08:29→19:35)
[2016-09-22] MEDS: ZYLOPRIM PO SCH (09:01)
[2016-09-22] MEDS: PREDNISONE PO SCH (09:01)
[2016-09-22] MEDS: TOPROL XL PO SCH ×2 (09:01→20:30)
[2016-09-22] MEDS: ICAR-C PO SCH ×2 (09:01→20:31)
[2016-09-22] MEDS: KLOR-CON PO SCH ×2 (09:01→20:30)
[2016-09-22] MEDS: APRESOLINE PO SCH ×2 (09:02→20:30)
[2016-09-22 09:09] LABS: CALCIUM 7.9 mg/dL (8.8-10.2); POTASSIUM 4.6 mmol/L (3.5-5.1)
[2016-09-22] MEDS: DILAUDID IV PRN ×2 (10:04→21:49)
--- NOTE | 2016-09-22 11:17 | PROGRESS NOTE ---
DATE: 09/22/2016 SUBJECTIVE: Ms. Bhatt is a patient of Dr. Munoz. She is doing somewhat better. She had EGD done by Dr. Jones, who removed a polyp from duodenum. She is doing somewhat better, except that she still has some epigastric pain. OBJECTIVE: Vital signs: Vital signs are stable with temperature 99 degrees. General: She is seen by Dr. Elliott for chronic renal failure. LABORATORY: BUN is 79, creatinine 3.5. Today her hemoglobin was 10.2, hematocrit 32.3, white count is 12.11. DISPOSITION: Overall condition is stable. -5 cc: MD Frankie Lisa MD
[2016-09-22] MEDS: ALBUTEROL NEB INH PRN ×2 (11:29→16:34)
[2016-09-22] MEDS: CATAPRES-TTS-3 TD SCH (13:02)
[2016-09-22 18:18] LABS: UR CREATININE 91.1 mg/dL (11-20); UR PROTEIN 55.7 mg/dL
[2016-09-23] MEDS: CARAFATE LIQUID PO SCH ×4 (00:59→20:34)
[2016-09-23] MEDS: PROTONIX IV SCH ×2 (00:59→12:48)
[2016-09-23] MEDS: ADVAIR 250/50 DISKUS INH SCH ×2 (07:42→19:50)
[2016-09-23] MEDS: ALBUTEROL NEB INH PRN ×2 (07:42→19:50)
[2016-09-23] MEDS: ZYLOPRIM PO SCH (08:47)
[2016-09-23] MEDS: KLOR-CON PO SCH ×2 (08:47→20:34)
[2016-09-23] MEDS: PREDNISONE PO SCH (08:47)
[2016-09-23] MEDS: TOPROL XL PO SCH ×2 (08:47→20:34)
[2016-09-23] MEDS: ICAR-C PO SCH ×2 (08:47→20:34)
[2016-09-23] MEDS: APRESOLINE PO SCH ×2 (09:59→20:34)
[2016-09-23] MEDS: DILAUDID IV PRN ×2 (10:00→18:27)
[2016-09-23] MEDS: SODIUM CHLORIDE 0.9% INJ SCH (12:48)
--- NOTE | 2016-09-23 13:41 | PROGRESS NOTE ---
DATE: 09/23/2016 Ms. Bhatt has been complaining about some epigastric pain. Her vital signs are stable. Oral intake is satisfactory. Her chromogranin level is slightly elevated. However, she is on Protonix which could increase it. She has pain in bilateral hips. X-ray showed mild arthritis. Overall condition is otherwise unchanged. cc: MD Frankie Lisa MD
[2016-09-24] MEDS: PROTONIX IV SCH ×3 (02:15→23:46)
[2016-09-24] MEDS: CARAFATE LIQUID PO SCH ×4 (02:15→20:42)
[2016-09-24] MEDS: DILAUDID IV PRN ×2 (02:59→11:30)
[2016-09-24 05:23] LABS: MANUAL DIFF NEEDED? NO
[2016-09-24 05:35] LABS: BASO% 0.1 % (0.0-0.8); EOS# 0.21 X1000 (0.0-0.7); EOS% 2.3 % (0.0-10.0); HEMATOCRIT 32.4 % (37.0-47.0); HEMOGLOBIN 9.9 g/dL (12.0-16.0); IMM GRAN# 0.04 X1000 (0.0-0.04); IMM GRAN% 0.4 % (0.0-0.5); LYMPH# 0.46 X1000 (1.2-3.4); LYMPH% 5.1 % (20.5-51.1); MCH 29.6 PG (27-31); MCHC 30.6 g/dL (33-37); MONO# 0.92 X1000 (0.11-0.59); MONO% 10.2 % (1.7-9.3); MPV 10.7 FL (7.4-10.4); NEUT% 81.9 % (42.2-75.2); PLT 206 X1000 (130-400); RBC 3.34 XMIL (4.2-5.4)
[2016-09-24 05:52] LABS: POTASSIUM 5.3 mmol/L (3.5-5.1)
[2016-09-24] MEDS: ADVAIR 250/50 DISKUS INH SCH ×2 (07:26→19:14)
[2016-09-24] MEDS: ALBUTEROL NEB INH PRN ×3 (07:29→15:54)
[2016-09-24] MEDS: ICAR-C PO SCH ×2 (08:29→20:42)
[2016-09-24] MEDS: PREDNISONE PO SCH (08:29)
[2016-09-24] MEDS: TOPROL XL PO SCH ×2 (08:30→20:43)
[2016-09-24] MEDS: KLOR-CON PO SCH ×2 (08:30→20:42)
[2016-09-24] MEDS: MIRALAX PO SCH ×2 (08:31→20:43)
[2016-09-24] MEDS: APRESOLINE PO SCH ×2 (08:31→20:43)
[2016-09-24] MEDS: ZYLOPRIM PO SCH (08:31)
--- NOTE | 2016-09-24 09:12 | PROGRESS NOTE ---
DATE: 09/24/2016 SUBJECTIVE: Patient complains of shortness of breath, fatigue and swelling of feet. 24 hour urine studies were done. Creatinine clearance is about 15 mL/minute. REVIEW OF SYSTEMS: Shortness of breath, swelling, fatigue. PHYSICAL EXAMINATION: Vital Signs: Stable on 3 L, on 100%, 219 pounds. HEENT: Within normal limits. Neck: Supple. Chest: Clear. Heart: Sounds are regular. Abdomen: Belly is soft, obese. Extremities: Show 1+ edema. INVESTIGATIONS: CBC: White cell count 9, hematocrit 32, platelets 206. SMA-7: Sodium 144, potassium 5.3, chloride 106, BUN 77, creatinine 3.6, calcium 8.0. Urine protein 55. Creatinine clearance 18 mL/minute. ASSESSMENT AND PLAN: 1. Symptomatic anemia due to upper gastrointestinal bleeding with precancerous polyps, status post endoscopy x2. Follow up on full pathology report. No symptoms and signs of active bleeding noted. Stable hematocrit. 2. Shortness of breath on exertion, history of diastolic heart failure. Nonsustained ventricular tachycardia. Increase the metoprolol and follow up on chest x-ray and diuresis today. 3. Hypertension on hydralazine and metoprolol 50 p.o. b.i.d. 4. End-stage kidney disease stage 4, nonoliguric renal failure, 24 hour protein is [address] Elliott. She is getting close to the dialysis. 5. 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 Clonidine patch every 7 days. 6. History of gout on Zyloprim. 7. Deconditioning. Out of the bed. Discontinue the oxygen and check the pulse oximetry. DISPOSITION: Based on the pulse oximetry, chest x-ray, we will discuss today for disposition. Will make the arrangements, outpatient home health care. LEVEL OF DOCUMENTATION: 35 minutes. cc: Frankie Munoz MD
[2016-09-24 10:08] LABS: ALLEN TEST YES; BE -10.7 mmoll (-3.0-3.0); BLOOD TYPE ARTERIAL; DRAW SITE R RADIAL; METHB 1.5 % (0.0-1.5); O2(CT) 14.2 mL/dL (15.0-23.0); PCO2(98.6) 33 mmHg (35-45); PO2(98.6) 86 mmHg (60-100); SAMPLE BLOOD; SAO2 98.8 % (95.0-100.0); THB 10.5 g/dL (11.5-17.4); pH(98.6) 7.27 (7.35-7.45)
[2016-09-24 10:09] LABS: MODALITY ROOM AIR
--- NOTE | 2016-09-24 12:09 | Diag Imaging Result Document ---
PROCEDURE NAME: CHEST-2 VIEWS - 09/24/2016 FRONTAL AND LATERAL CHEST, TWO VIEWS: COMPARISON: Compared to 09/14/2016. FINDINGS: No change in the right-sided [id number]. No pneumothorax. The heart is mildly prominent. There is a small left effusion and there is left basilar atelectasis and possibly and underlying infiltrate. The appearance is similar to that of the prior exam. The right lung remains clear. The vessels are not distended. IMPRESSION: Stable chest.
--- NOTE | 2016-09-24 12:33 | PROGRESS NOTE ---
DATE: 09/24/2016 SUBJECTIVE: Patient is currently resting in a chair. She denies any new complaints. She had 1 bowel movement earlier today. She has a history of intermittent constipation but she is scared of taking laxatives as it causes her diarrhea but she has previous history of constipation based on our evaluation. The patient denies noticing any blood in the stools. She denies any nausea or vomiting today. She denies any fevers, rigors, chills. Her hemoglobin and hematocrit are stable. OBJECTIVE: Vital signs: Temperature 97.8 degrees, pulse rate of 74, respiratory rate of 20, blood pressure 144/68, saturating 100% on 2 L nasal cannula. General appearance: Obese, sitting in a chair, in no acute distress. HEENT: Mild pallor. No icterus. Neck: Supple. Abdomen: Obese, soft, nontender, nondistended. Bowel sounds are noted. No guarding or rebound. Extremities: No cyanosis or clubbing. Neurologic: She is alert, awake, oriented. LABS: Her hemoglobin and hematocrit are 9.9 and 32.4, white count of 9.02, platelet count of 206,000, MCV of 97. INR of 0.98. Sodium 144, potassium is 5.3, chloride 116, bicarb of 18, anion gap of 10, BUN of 77, creatinine 3.6, glucose of 90, calcium is 8. Chromogranin level is 317. Sputum serotonin level is currently pending. ASSESSMENT AND PLAN: 1. 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 Jones on 09/21/2016. According to the note Dr. Jones was able to move 90% of the tumor. She will stay off her Coumadin for 2-3 weeks as per his note. The patient will return back to the clinic in 4-6 weeks and at that time she will need a repeat EGD with removal of the rest of the villous adenoma per Dr. Jones. 2. Anemia. Continue to watch and type and cross and transfuse to keep hematocrit more than 25%. 3. Carcinoid syndrome. Being managed by Dr. Lozoya. She is on long-acting somatostatin analog once a month. 4. Constipation. We will keep her on MiraLAX twice daily. 5. Diverticulosis of the colon. Avoid excessive corn, nuts, and seeds in diet and increase fiber to 25-30 g in 24 hours. 6. Renal insufficiency. Being managed by Dr. Elliott. 7. Gastrointestinal prophylaxis with PPIs. 8. Further recommendations pending the hospital course. The above plan was discussed with the patient and RN and all questions answered. cc: MD Frankie Doyle MD Naveen T. Lobo, MD Reginald D. Gladish, MD Ashish K. Basu, MD
--- NOTE | 2016-09-24 14:26 | PROGRESS NOTE ---
DATE: 09/24/2016 TIME SEEN: 0700 SUBJECTIVE: Ms. Bhatt is resting quietly in bed. She has complaints of increased work of breathing with fatigue. States that she becomes dyspneic on exertion. OBJECTIVE: Vital signs: Her most recent vital signs. Last temperature 97.8 degrees, blood pressure 161/85, heart rate 84, respirations are 20. She remains on 2 L nasal cannula. Last recorded saturation is 100%. She has had 730 in. She has had 150 out per void in the last 24 hours. LABORATORY DATA: Her most recent labs. Her sodium is 144, potassium 5.3, chloride 116, CO2 18, BUN 77, creatinine 3.6, glucose is 90, calcium of 8. Her white count 9.02, hemoglobin 9.9, hematocrit 32.4 with a platelet count of 206,000. ABGs drawn this a.m., pH 7.27 , CO2 33, PO2 86, bicarb 16.6. She has a lactate of 1.3 on room air. PHYSICAL EXAMINATION: General: This is a 76-year-old female. She is currently resting in bed. She is in no acute distress though she does have some tachypneic at rest. HEENT: Normocephalic, atraumatic. Conjunctiva is pale. She has SHAYNA. Mucous membranes are dry. Neck: Supple. Trachea midline. No JVD. Cardiovascular: Regular rate and rhythm. She is without murmur or gallop. Lungs: Clear to auscultation anteriorly. Equal excursion on O2. Abdomen: Large, round, soft, nontender. Positive bowel sounds. Genitourinary: The patient is voiding minimal amount. She has been getting up to the bathroom by herself. This has not been adequately recorded. Extremities: She has 1+ lower extremity edema. No clubbing or cyanosis. Neurological: She is alert and oriented to person and to place. ASSESSMENT AND PLAN: 1. Acute kidney injury overlying CKD4. Patient has remained above her baseline and has been fluctuating between 3.1 and 3.6 since her initial hospitalization. She initially did appear to be in fluid volume deficit. However no real improvement with transfusion. I spoke directly with Dr. Munoz on 09/24/16. Her CrCl is 16-18. No absolute indications for HD at this time. I would prefer to manage conservatively and plan [facility] as an outpatient if possible. rg 2. Increased work of breathing more so noted with dyspnea on exertion. Patient does have a history of diastolic heart failure with a history of ventricular tachycardia. We will check a chest x-ray today. We will start her on 40 mg of IV Lasix. We will reevaluate once the x- ray has been read. We have requested that they keep an accurate I and O. 3. Electrolytes and acid-base balance. These remain stable. 4. Anemia. This is been acceptable. This is currently being followed by Dr. Lott. It is noted that she does have a duodenal periampullary adenoma with a partial resection by Dr. Jones on 09/21 who has stated that he has had a 90% partial removal of the tumor with further plans of complete removal in 4-6 weeks posthospitalization as an outpatient. 5. Continued weakness. This does continue, possibly related to #1 and #2. I would like to thank you for allowing us to follow with this patient. Seen, data reviewed, discussed with Dedra Collier on 09/24/16. I agree with the above assessment and plan of care. rg Dictated by CLARA Galeana for Travon Elliott MD cc: CLARA Galeana MD Jagan Reddy, MD MTDD
[2016-09-24] MEDS: SODIUM CHLORIDE 0.9% INJ SCH (23:46)
[2016-09-25] MEDS: DILAUDID IV PRN ×2 (00:56→09:41)
[2016-09-25] MEDS: CARAFATE LIQUID PO SCH ×2 (03:06→08:51)
[2016-09-25 06:09] LABS: ALBUMIN 3.2 g/dL (3.5-5.0); CALCIUM 8.4 mg/dL (8.8-10.2); POTASSIUM 5.5 mmol/L (3.5-5.1)
[2016-09-25] MEDS: ALBUTEROL NEB INH PRN ×2 (07:28→11:53)
[2016-09-25] MEDS: ADVAIR 250/50 DISKUS INH SCH (07:28)
[2016-09-25] MEDS: MIRALAX PO SCH (08:51)
[2016-09-25] MEDS: ZYLOPRIM PO SCH (08:51)
[2016-09-25] MEDS: PREDNISONE PO SCH (08:51)
[2016-09-25] MEDS: ICAR-C PO SCH (08:51)
[2016-09-25] MEDS: KLOR-CON PO SCH (08:52)
[2016-09-25] MEDS: APRESOLINE PO SCH (08:52)
[2016-09-25] MEDS: TOPROL XL PO SCH (08:52)
[2016-09-25] MEDS ORDERED: LASIX IV SCH (09:00)
[2016-09-25] MEDS ORDERED: LASIX PO SCH (09:00)
--- NOTE | 2016-09-25 10:30 | PROGRESS NOTE ---
DATE: 09/25/2016 TIME SEEN: 729 SUBJECTIVE: Ms. Bhatt is resting quietly in bed. Head of the bed is elevated. She states that she is breathing just a little bit better at rest. Otherwise, she continues with dyspnea on exertion. She denies chest pain. OBJECTIVE: Vital Signs: Her most recent vital signs are temperature 97.9 degrees, blood pressure 137/74, heart rate 74, respirations 18. She is on 2 L nasal cannula. Last recorded saturation 100%. She has had 537 in. She has had 300 out per void. Labs: Sodium 145, potassium 5.5, chloride is 115, CO2 18, BUN 77, creatinine 3.8, glucose 86, anion gap is 12, calcium 8.4, phosphorus 2.1, albumin 3.2. White count 9.02, hemoglobin 9.9, hematocrit 32.4, with a platelet count of 206,000. Chest x-ray completed yesterday showed stable chest with left lower lobe infiltrate. Physical Examination: General: This is a 76-year-old, female. She is resting quietly in bed. She is in no acute distress. She is less tachypneic today than she was yesterday. Skin: Warm and dry. HEENT: Normocephalic, atraumatic. Conjunctivae pale. She has SHAYNA. Mucous membranes are dry. Neck: Supple. Trachea midline. No JVD. Cardiovascular: Regular rate and rhythm. She is without murmur or gallop. Lungs: Clear to auscultation anteriorly. Equal excursion anterior with faint wheeze to the left upper lobe. Abdomen: Large, obese, round, soft, nontender. Positive bowel sounds. Genitourinary: Patient is voiding minimal amount. She has been going to the bathroom herself. We have requested accurate Is and Os. Extremities: She continues with 1+ lower extremity edema. No clubbing or cyanosis. Neurological: She is alert to person and to place. ASSESSMENT AND PLAN: 1. Acute kidney injury overlying chronic kidney disease stage IV. Her creatinine has been fluctuating. Creatinine is slightly bumped today at 3.8 from 3.6 secondary to adding intravenous Lasix yesterday to her regimen. We will continue to monitor. No indications for hemodialysis at this time. We will see her in the office. rg 2. Increased work of breathing. Patient did respond slightly to the added Lasix. We will change her Lasix intravenous to 80 mg by mouth twice a day in preparation for patient possibly being discharged and to assist with her increased work of breathing. 3. Electrolytes and acid-base balance. Patient has mild hyperkalemia. This remains stable with no need for intervention at this time. 4. Acidosis. Patient remains acidotic. We will not be intervening at this time on this. This has contributed to #1. 5. Anemia. This remains stable. The patient has received transfusions during her hospitalization. Followed by gastroenterology. I would like to thank you for allowing us to follow with this patient. Data reviewed, discussed with Dedra Collier on 09/25/16. I agree with the above assessment and plan of care. rg Dictated by CLARA Galeana for Travon Elliott MD cc: CLARA Galeana MD Jagan Reddy, MD [facility]
[2016-09-25] MEDS ORDERED: HEPARIN ONE (11:27)
[2016-09-25 11:42] VITALS: BP 135/71
[2016-09-25] MEDS: PROTONIX IV SCH (12:18)
--- NOTE | 2016-09-25 19:22 | DISCHARGE SUMMARY ---
ADMISSION DATE: 09/15/2016 DISCHARGE DATE: 09/25/2016 DISCHARGING DIAGNOSIS: Symptomatic anemia due to bleeding from precancerous polyps, adenoma with villous features at the periampullary area. SECONDARY DIAGNOSES: 1. Carcinoid syndrome. 2. Hypertension. 3. Diabetes. 4. Chronic diastolic heart failure, stable. 5. Chronic kidney disease, stage 4. Creatinine 3.8, creatinine clearance is 18 mL/h. 6. Pickwickian syndrome. 7. History of asthmatic bronchitis. 8. Paroxysmal atrial fibrillation with nonsustained ventricular tachycardia. 9. History of port on the right side, status post inferior vena cava filter. CONSULTANTS: 1. Lance Jones MD/Darrell Lott MD. 2. Travon Elliott MD. 3. Derick Greenberg MD. PROCEDURES: 1. EGD x2. Removed the 1.2 cm to 3 cm adenomatous polyps with villous features from the periampullary area. 2. Blood transfusion, 5 units of packed RBCs. 3. Colonoscopy negative. BRIEF HISTORY: Please see the H and P that was done by hospitalist. In brief she is a 76-year- old, pleasant female with the above problems admitted to the hospital with dizziness, shortness of breath. Hematocrit was 18. Patient was admitted in [facility]. HOSPITAL COURSE: 1. Anemia, heme-positive stools. The patient was given 5 units of packed RBCs. EGD and colonoscopy findings are adenomatous polyp 3 cm from the third part of the duodenum close to the periampullary area which was excised by Dr. Jones second time and there were no signs of active GI bleeding noted. 2. Prior to the EGD, patient was on Coumadin for which she was given vitamin K. The patient was advised to stop the Coumadin for at least couple of weeks and Dr. Jones will go back and relook in 6 weeks. We will follow up on the pathology report. 3. Complaints of shortness of breath on exertion. The patient was given diuresis. Chest x-ray was stable except for chronic cardiomegaly with diastolic heart failure, stable. Patient was dropping oxygen with minimal exertion to 70%, qualified for home oxygen. 4. Chronic kidney disease, stage 4. Dr. Elliott was consulted. She is getting close to the dialysis. Creatinine clearance was 18 mL per minute. At the time of discharge the labs are as follows. CBC: White cell count 9, hematocrit 32, platelets 206,000. SMA 7: Sodium 145, potassium 5.5, chloride 115, BUN 77, creatinine 3.8, glucose 120. 24 hour urine study creatinine clearance is 18 mL/minute. 24 hour protein is 557. 24 hour chromogranin levels 317. Vitamin B12 is 847. Thyroid function tests were normal. Protein electrophoresis: Hypoproteinemia. No monoclonal antibody was identified. DISCHARGE INSTRUCTIONS: Advair 250/50 one puff b.i.d., Celebrex 200 daily, allopurinol 200 daily, prednisone 5 mg daily, Ventolin HFA as needed for rescue, albuterol nebulizers as needed. Discontinue warfarin. Lasix 80 p.o. b.i.d., Bumex 1 mg daily, metoprolol 25 daily, hydralazine 100 p.o. b.i.d., clonidine patch 0.3 once a week, calcitriol 0.25 mg daily, Icar C Plus 1 tablet daily. Recheck in my office in 2 weeks. Follow up with Dr. Jones in [address] Elliott for chronic kidney disease and Dr. Lozoya for anticoagulation and carcinoid syndrome. Also home oxygen 2 L as pulse oximetry was 70% with minimal exertion. cc: MD Lance Gibson MD Reginald D. Gladish, MD Ashish K. Basu, MD Manish Arora, MD MTDD
== END 2016-09-25 12:15 | disposition home or self-care (01) ==
LOC: ED 20:07 → 3S 09-15 00:29 → SUATTDRO 09-15 00:29 → 3S 09-15 00:46
PROVIDERS: ADMIT Internal Medicine; ATTEND Internal Medicine